=== PATIENT | female | born 1950 | race Caucasian/White ===

== ENCOUNTER → 2020-03-10 | Outpatient (REF) | payer MEDICARE, OTHER ==
[2020-03-10 11:15] LABS: BASO % 0.5 % (0.0-1.0); EOS # 0.1 10^3/uL (0.0-0.5); EOS % 1.6 % (0.0-3.0); HEMATOCRIT 37.3 % (36.0-47.0); HEMOGLOBIN 12.7 g/dl (12.0-15.5); LYMPH # 2.5 10^3/uL (1.5-5.0); LYMPH % 33.2 % (24.0-44.0); MEAN CORPUSCULAR HEMOGLOBIN 31.4 pg (27.0-33.0); MEAN CORPUSCULAR VOLUME 92.3 fl (80.0-96.0); MONO # 0.5 10^3/uL (0.0-0.8); NEUTROPHILS # 4.4 10^3/uL (1.5-8.5); NEUTROPHILS % 58.4 % (36.0-66.0); PLATELET COUNT, AUTOMATED 174 10^3/uL (150-450); RED BLOOD COUNT 4.04 10^6/uL (4.00-5.40); WHITE BLOOD COUNT 7.5 10^3/uL (4.0-10.0)
[2020-03-10 11:44] LABS: ALBUMIN 4.5 GM/DL (3.2-5.2); ALT/SGPT 42 U/L (12-78); BLOOD UREA NITROGEN 13 MG/DL (7-18); CALCIUM LEVEL 10.1 MG/DL (8.8-10.2); CARBON DIOXIDE LEVEL 27 MEQ/L (21-32); CHLORIDE LEVEL 102 MEQ/L (98-107); CHOLESTEROL LEVEL 160 MG/DL (<200); CHOLESTEROL RISK RATIO 2.909 (<5); CREATININE FOR GFR 0.83 MG/DL (0.55-1.30); FREE T4 1.06 NG/DL (0.76-1.46); GLOMERULAR FILTRATION RATE > 60.0 (>45); GLUCOSE, FASTING 137 MG/DL (70-100); HDL CHOLESTEROL 55 MG/DL (>40); LDL CHOLESTEROL 81 MG/DL (<100); NON-HDL-C 105 MG/DL; POTASSIUM SERUM 4.1 MEQ/L (3.5-5.1); PTH INTACT 18.4 PG/ML (18.5-88.0); SODIUM LEVEL 139 MEQ/L (136-145); TOTAL 25(OH) VITAMIN D 65.5 NG/ML (30.0-100.0); TOTAL PROTEIN 8.3 GM/DL (6.4-8.2); TRIGLYCERIDES LEVEL 121 MG/DL (<150)
[2020-03-10 11:46] LABS: HEMOGLOBIN A1c 5.5 %
== END ==
LOC: M SFHCPLAZ 10:03
PROVIDERS: ATTEND Physician Assistant Medical
DX: E55.9 Vitamin D deficiency, unspecified (principal); E03.9 Hypothyroidism, unspecified; I10 Essential (primary) hypertension; E78.5 Hyperlipidemia, unspecified; E11.9 Type 2 diabetes mellitus without complications; J45.20 Mild intermittent asthma, uncomplicated
CPT/HCPCS: 36415; 80053; 80061; 82306; 83036; 83970; 84439; 84443; 85025; G0463

== ENCOUNTER → 2020-03-10 | Outpatient (CLI) | payer MEDICARE, OTHER ==
--- NOTE | 2020-03-10 11:20 | REPPI ---
TWO-VIEW CHEST: REASON: History of asthma. PRIORS: None. FINDINGS: The superior mediastinal structures are midline. The cardiac silhouette is unremarkable in size, shape, and position. The diaphragmatic surfaces of the lungs are regular, and the costophrenic angles are clear. The pulmonary morat[place] are clear. The imaged osseous structures are intact. IMPRESSION: There is no acute cardiopulmonary disease. Electronically Signed by David Carlson DO 03/10/2020 02:46 P
== END ==
LOC: M PLAIMG 10:05
PROVIDERS: ATTEND Physician Assistant Medical
DX: J45.20 Mild intermittent asthma, uncomplicated (principal)

== ENCOUNTER → 2020-04-07 | Outpatient (REF) | payer MEDICARE, OTHER | LOC: M SFHCPLAZ 11:16 | PROVIDERS: ATTEND Physician Assistant Medical | DX: G62.9 Polyneuropathy, unspecified (principal) ==

== ENCOUNTER → 2020-07-18 | Outpatient (REF) | payer MEDICARE, OTHER ==
[2020-07-18 14:52] LABS: HEMOGLOBIN A1c 5.3 %
[2020-07-18 15:06] LABS: FREE T4 1.05 NG/DL (0.76-1.46); THYROID STIMULATING HORMONE 2.47 uIU/ML (0.358-3.740)
== END ==
LOC: M SFHCPLAZ 09:25
PROVIDERS: ATTEND Physician Assistant Medical
DX: E55.9 Vitamin D deficiency, unspecified (principal); E11.9 Type 2 diabetes mellitus without complications; E03.9 Hypothyroidism, unspecified

== ENCOUNTER → 2020-09-18 | Outpatient (REF) | payer MEDICARE, OTHER | LOC: M LAB REF 13:00 | PROVIDERS: ATTEND Plastic Surgery Surgery of the Hand | DX: D22.39 Melanocytic nevi of other parts of face (principal) ==

== ENCOUNTER → 2020-11-15 | Outpatient (CLI) | payer MEDICARE, OTHER | LOC: M WHC 15:26 | PROVIDERS: ATTEND Physician Assistant Medical | DX: Z12.31 Encounter for screening mammogram for malignant neoplasm of breast (principal) ==

== ENCOUNTER → 2020-11-16 | Outpatient (REF) | payer MEDICARE, OTHER ==
[2020-11-16 18:42] LABS: HEMOGLOBIN A1c 5.5 %
[2020-11-16 18:46] LABS: ALBUMIN 4.2 GM/DL (3.2-5.2); ALT/SGPT 45 U/L (12-78); BILIRUBIN,TOTAL 0.7 MG/DL (0.2-1.0); BLOOD UREA NITROGEN 14 MG/DL (7-18); CALCIUM LEVEL 9.3 MG/DL (8.8-10.2); CARBON DIOXIDE LEVEL 26 MEQ/L (21-32); CHLORIDE LEVEL 101 MEQ/L (98-107); CREATININE FOR GFR 0.82 MG/DL (0.55-1.30); FREE T4 1.27 NG/DL (0.76-1.46); GLOMERULAR FILTRATION RATE > 60.0 (>39); GLUCOSE, FASTING 164 MG/DL (70-100); POTASSIUM SERUM 3.6 MEQ/L (3.5-5.1); SODIUM LEVEL 137 MEQ/L (136-145); THYROID STIMULATING HORMONE 0.018 uIU/ML (0.358-3.740); TOTAL PROTEIN 8.1 GM/DL (6.4-8.2)
== END ==
LOC: M PLALAB 15:19
PROVIDERS: ATTEND Physician Assistant Medical
DX: E11.9 Type 2 diabetes mellitus without complications (principal); E03.9 Hypothyroidism, unspecified

== ENCOUNTER → 2021-01-12 | Outpatient (REF) | payer MEDICARE, OTHER ==
[2021-01-12 11:52] LABS: BASO % 0.7 % (0.0-1.0); EOS # 0.2 10^3/uL (0.0-0.5); EOS % 2.7 % (0.0-3.0); HEMATOCRIT 35.8 % (36.0-47.0); HEMOGLOBIN 12.2 g/dl (12.0-15.5); LYMPH # 2.3 10^3/uL (1.5-5.0); LYMPH % 38.2 % (24.0-44.0); MEAN CORPUSCULAR HEMOGLOBIN 31.4 pg (27.0-33.0); MEAN CORPUSCULAR HGB CONC 34.1 g/dl (32.0-36.5); MEAN CORPUSCULAR VOLUME 92.3 fl (80.0-96.0); MONO # 0.4 10^3/uL (0.0-0.8); MONO % 6.2 % (2.0-8.0); NEUTROPHILS # 3.1 10^3/uL (1.5-8.5); NEUTROPHILS % 51.9 % (36.0-66.0); PLATELET COUNT, AUTOMATED 150 10^3/uL (150-450); RED BLOOD COUNT 3.88 10^6/uL (4.00-5.40)
[2021-01-12 12:51] LABS: ALBUMIN 4.3 GM/DL (3.2-5.2); ALT/SGPT 34 U/L (12-78); BILIRUBIN,TOTAL 0.9 MG/DL (0.2-1.0); BLOOD UREA NITROGEN 18 MG/DL (7-18); CALCIUM LEVEL 10.2 MG/DL (8.8-10.2); CARBON DIOXIDE LEVEL 24 MEQ/L (21-32); CHLORIDE LEVEL 102 MEQ/L (98-107); CREATININE FOR GFR 0.81 MG/DL (0.55-1.30); FREE T4 0.94 NG/DL (0.76-1.46); GLOMERULAR FILTRATION RATE > 60.0 (>39); GLUCOSE, FASTING 115 MG/DL (70-100); POTASSIUM SERUM 4.2 MEQ/L (3.5-5.1); SODIUM LEVEL 136 MEQ/L (136-145); THYROID STIMULATING HORMONE 0.214 uIU/ML (0.358-3.740); TOTAL 25(OH) VITAMIN D 55.2 NG/ML (30.0-100.0); TOTAL PROTEIN 7.9 GM/DL (6.4-8.2)
== END ==
LOC: M PLALAB 09:59
PROVIDERS: ATTEND Physician Assistant Medical
DX: I10 Essential (primary) hypertension (principal); E03.9 Hypothyroidism, unspecified

== ENCOUNTER → 2021-03-20 | Outpatient (REF) | payer MEDICARE, OTHER | LOC: M SFHCPLAZ 09:38 | PROVIDERS: ATTEND Physician Assistant Medical | DX: Z71.84 Encounter for health counseling related to travel (principal) | CPT/HCPCS: 36415; 86769; G0463 ==

== ENCOUNTER → 2021-07-21 | Outpatient (CLI) | payer MEDICARE, OTHER ==
[~2021-07-21] MED LIST: AMLO1TAB24; ARMO1TAB; ATOR1TAB21; CLEN1SOL; ESCITALOPRAM; LEXA1TAB2; LOSA100T8; METF500T13; MONT10TA10; THYR15TA
== END ==
LOC: M LABSMTC 11:43
PROVIDERS: ATTEND Anesthesiology
DX: Z01.812 Encounter for preprocedural laboratory examination (principal); Z20.822 Contact with and (suspected) exposure to COVID-19

== ENCOUNTER 2021-07-26 07:02 | Day surgery (SDC) | payer MEDICARE, OTHER ==
[~2021-07-26] VITALS: Ht 154.9 cm; Wt 77.1 kg
[~2021-07-26 07:02] MED LIST changes: +NS 1,000 ML IV ONE
--- OUTSIDE RECORDS SUMMARY | 2021-07-26 07:05 | CCD ---
Author Author [facility] Organization [facility] Address Unknown Phone Unavailable Care Team Providers Care Boiler Coverer Helper Name Role Phone Giovanni Mitzi Unavailable PROBLEMS Type Condition ICD9-CM Code [id number] Code Onset Dates Condition S tatus W/U Status Risk SNOMED Code Notes Problem Acquired hypothyroidism E03.9 Active confirmed 731163540 Problem Hyperlipidemia LDL goal <100 E78.5 Active confirme d 88334071 Problem Essential hypertension I10 Active confirmed 83429212 Problem Anxiety F41.9 Active confirmed 77908933 Problem Vitamin D deficiency E55.9 Active confirmed 62093812 Problem Abdominal pannus 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 Active confirmed 106 7934260793 Problem Mild intermittent reactive airway disease without comp lication J45.20 Active confirmed 891021556 Problem Type 2 diabetes mellitus wit hout complication, without long-term current use of insulin E11.9 Active confirmed 318535988 Problem Peripheral polyneuropathy G62.9 Active confirmed 30295603 Problem Encounter for screening mammogram for malignant neoplasm of breast Z12.31 Active confirmed 418104031 ALLERGIES Allergen (clinical drug ingredient) Drug/Non Drug Allergy do cumented on EMR Reaction Allergy Type Onset Date Status Dog dander Dog dander Unknown Non Drug Allergy Active Seasonal Unknown Non Drug Allergy Active Penicillin (For Allergies Use Only) Unknown Drug Allerg y Active Cat dander Cat dander Unknown Non Drug Allergy Active ENCOUNTERS from 1950 to 2021-06-27 Encounter Location Date Provider Diagnosis [facility] [address] [facility] [phone] [place] [address] May, Mitzi Davila IMMUNIZATIONS No Information SOCIAL HISTORY Tobacco Use: Social History Observation Description Date Details (start date - stop date) Never Smoker Sex Assigned At : Social History Observation Description Sex Assigned At Unknown Education: Question Answer Notes Level of Education: Not Finished College Audit Question Answer Notes Total Score: 1 Interpretation: Alcohol Education Language: Question Answer Notes Languages spoken: Maori Oriental Orthodox: Question Answer Notes Oriental Orthodox 08 Islam Sexual Hx: Question Answer Notes Had sex in the last 12 months (vaginal, oral, or anal)? No Have you ever had an STD? No Drug and Alcohol Question Answer Notes Total Score: 0 Interpretation: No problems reported Alcohol Screening: Question Answer Notes Did you have a drink containing alcohol in the past year? No Points 0 Interpretation Negative Tobacco Use: Question Answer Notes Are you a: never smoker REASON FOR REFERRAL No Information VITAL SIGNS No information MEDICATIONS Medication SIG (Take, Route, Frequency, Duration) Notes Start Da te End Date Status [place] Thyroid 60 MG 1 tablet on an empty stomach Orally Once a day for 30 day(s) Dec, Not-Taking metFORMIN HCl 500 MG 2 tab Oral bid for 90 day(s) Active Atorvastatin Calcium 20 MG tk 1 t po qpm Oral before bedtime for 90 day(s) Active metFORMIN HCl 500 MG tk 1.5 t po bid Oral bid for 30 Active Amlodipine Besylate 5 MG tk 1 t po qd Oral Daily for 90 day(s) Active Vitamin D3 10 MCG (400 UNIT) 1 capsule Orally Once a day for 30 day(s ) Active [place] Thyroid 15 MG 1 tablet on an empty stomach Orally Once a day for 30 day(s) January, Active [place] Thyroid 30 MG 1.5 tablet on an empty stoma ch Orally Once a day for 90 day(s) Active Montelukast Sodium 10 MG 1 tablet Oral before bedtime for 90 days Active Systane Ultra 0.4-0.3 % 1 drop Ophthalmic c1Onisq for 7 day(s) Active Ventolin HFA 108 (90 Base) MCG/ACT 1 puff as needed Inhalation ever y 4 hrs Active Losartan Potassium-HCTZ 100-12.5 MG tk 1 t po qd Oral Daily for 90 da y(s) Active Escitalopram Oxalate 20 MG 1 tablet Orally Once a day for 90 day (s) Feb, Active PROCEDURES No Information RESULTS No Results REASON FOR VISIT montelukast MEDICAL (GENERAL) HISTORY Type Description Date Medical History DM Medical History HTN Medical History Hyperlipidemia Medical History Hypothyroidism Medical History Pneumonia in past Surgical History C-Sections x's 3 Surgical History Gall Bladder 1985 Hospitalization History Pneumonia & Q wave activity 10/2016 Goals Section No Information Health Concerns No Information MEDICAL EQUIPMENT No Information MENTAL STATUS No Information FUNCTIONAL STATUS No Information ASSESSMENTS No Information PLAN OF TREATMENT Medication Medication Name Sig Start Date Stop Date Amlodipine Besylate 5 MG tk 1 t po qd Oral Daily for 90 day(s) Losartan Potassium-HCTZ 100-12.5 MG tk 1 t po qd Oral Daily for 90 day(s) metFORMIN HCl 500 MG 2 tab Oral bid for 90 day(s) Atorvastatin Calcium 20 MG tk 1 t po qpm Oral before bedtime for 90 day(s) Montelukast Sodium 10 MG 1 tablet Oral before bedtime for 90 day s Ventolin HFA 108 (90 Base) MCG/ACT 1 puff as needed Inhalation e very 4 hrs Escitalopram Oxalate 20 MG 1 tablet Orally Once a day for 90 day(s) Feb, [place] Thyroid 30 MG 1.5 tablet on an empty stoma ch Orally Once a day for 90 day(s) Vitamin D3 10 MCG (400 UNIT) 1 capsule Orally Once a day for 30 day(s) Systane Ultra 0.4-0.3 % 1 drop Ophthalmic v2Mhtdm for 7 day(s) Next Appt Details Provider Name:Mitzi Shivam Davila, 2020-09 0 09:30:00 AM, [address] [facility], , [place], [address], Insurance Providers Payer Name Payer Address Payer Phone Insured Name Patient Relati onship to Insured Coverage Start Date Coverage End Date HU[employer] PPO [address] [address] [facility] [phone] ASHIA ARRIAGA MEDICARE Part A and B [address] [facility] [phone] ASHIA JENNINGS
--- OUTSIDE RECORDS SUMMARY | 2021-07-26 07:05 | CCD | Continuity of Care Document ---
Author Author [facility] Organization Unknown Address [address], [address] [place] [address] Phone [phone] Care Team Providers Care Child Care Lead Teacher Name Role Phone Mizti Davila AUTM Problems Active Problems Provider Date Essential hypertension Onset: 08/17/2020 Social History Type Date Description Comments Sex Female ETOH Use Rarely consumes alcohol Tobacco Use Start: Unknown Denies Smoking Smoking Status Reviewed: 09/11/20 Denies Smoking Allergies, Adverse Reactions, Alerts Active Allergies Criticality Reaction | Severity Comments Date Penicillins Unable to assess criticality 06/12/2021 Medications Active Medications SIG Qnty Indications Ordering Provide r Date Clenpiq 10-3.5-12mg-GM -GM/160ML S olution take as directed per doctor's bowel prep instructions. 320ml Z12.1 1 Laron Nolen MD 06/12/[address] take 4 tabs by mouth prior to procedure per instructions. 4tabs Z12.11 Laron Nolen MD 06/12/2021 Atorvastatin Calcium 20mg Tablets Daily Unknown Amlodipine Besylate 5mg Tablets Daily Unknown Metformin HCL 500mg Tablets 2 bid Unknown Montelukast Sodium 10mg Tablets 1 by mouth every day Unknown Zyrtec Allergy 10mg Capsules one pill by mouth at night.. Unknown [place] Thyroid 30mg Tablets Daily with a 15 mg to make 45 mg Unknown Escitalopram Oxalate 20mg Tablets 2 Daily Unknown Ventolin HFA 108(90Base) mcg/Act A erosol take 1 puff as needed. Unknown 0 Immunizations Description No Information Available Vital Signs Date Vital Result Comment 06/12/2021 2:05pm BP Systolic 148 mmHg BP Diastolic 82 mmHg Height 61 inches 5'1" Weight 175.00 lb BMI (Body Mass Index) 33.1 kg/m2 [place] Body Weight 105 lb Weight 79.380 kg BSA (Body Surface Area) 1.78 m2 10/04/2020 3:24pm BP Systolic 118 mmHg BP Diastolic 68 mmHg Heart Rate 80 /min Respiratory Rate 14 /min Body Temperature 97.8 F Height 61 inches 5'1" [place] Body Weight 105 lb Results Description No Information Available Procedures Description No Information Available Medical Devices Description No Information Available Encounters Description No Information Available Assessments Date Code Description Provider 06/12/2021 Z12.11 Encounter for screening for marva gnant neoplasm of colon SHADI Ramsey 06/12/2021 Z86.010 Personal history of colonic poly ps SHADI Ramsey Plan of Treatment Future Appointment(s):* 07/26/2021 8:40 am - Hayden Wang M.D. at [facility] 06/12/2021 - SHADI Ramsey* Z12.11 Encounter for screening for malignant neoplasm of colon * Z86.010 Personal history of colonic polyps * * New Medication:* Clenpiq 10-3.5-12 mg-GM -GM/160ML * Dulcolax 5 mg * New Orders:* Colonoscopy, Ordered: 06/12/21 * Comments:* Will arrange for colonoscopy. Reviewed risks and benefits of the procedure, as well as other options, with the patient. Bowel prep procedure was discussed with patient, as well as risks and side effects associated with the bowel prep. Patient verbalized understanding of all of the above and is in agreement to proceed. Patient will seek medical attention for any acute changes. Will monitor. * Follow up:* As scheduled, sooner if needed. Functional Status Description No Information Available Mental Status Description No Information Available Referrals Refer to Reason for Referral Status Appt Date Hayden Wang M.D. COLO SCREENING HX OF POLYPS Sched ed 05/08/2021 [facility] [address], [address] [place], [place] [address] [phone]
--- OUTSIDE RECORDS SUMMARY | 2021-07-26 07:05 | CCD ---
Author Author [facility] Organization [facility] Address Unknown Phone Unavailable Care Team Providers Care Teaching Aide Name Role Phone Giovanni Mitzi Unavailable PROBLEMS Type Condition ICD9-CM Code [id number] Code Onset Dates Condition S tatus W/U Status Risk SNOMED Code Notes Problem Acquired hypothyroidism E03.9 Active confirmed 568395797 Problem Hyperlipidemia LDL goal <100 E78.5 Active confirme d 83218496 Problem Essential hypertension I10 Active confirmed 15435009 Problem Anxiety F41.9 Active confirmed 44305973 Problem Vitamin D deficiency E55.9 Active confirmed 41193077 Problem Abdominal pannus E65 Active confirmed 106 8921086456 Problem Mild intermittent reactive airway disease without comp lication J45.20 Active confirmed 640510079 Problem Type 2 diabetes mellitus wit hout complication, without long-term current use of insulin E11.9 Active confirmed 414096090 Problem Peripheral polyneuropathy G62.9 Active confirmed 01302653 Problem Encounter for screening mammogram for malignant neoplasm of breast Z12.31 Active confirmed 050435305 ALLERGIES Allergen (clinical drug ingredient) Drug/Non Drug Allergy do cumented on EMR Reaction Allergy Type Onset Date Status Cat dander Cat Dander Unknown Drug Allergy Active Penicillin (For Allergies Use Only) Unknown Drug Allerg y Active Pollen Pollen Unknown Drug Allergy Active Dog dander Dog Dander Unknown Drug Allergy Active ENCOUNTERS from 1950 to 2021-07-24 Encounter Location Date Provider Diagnosis [address] [phone] [place] [address] Jun, Mitzi Davila Anxiety F41.9 IMMUNIZATIONS No Information SOCIAL HISTORY Tobacco Use: Social History Observation Description Date Details (start date - stop date) Never Smoker Sex Assigned At : Social History Observation Description Sex Assigned At Unknown Education: Question Answer Notes Level of Education: Not Finished College Audit Question Answer Notes Total Score: 1 Interpretation: Alcohol Education Language: Question Answer Notes Languages spoken: Slovak Anglican: Question Answer Notes Anglican 08 Advent Sexual Hx: Question Answer Notes Had sex [...] Notes Start Da te End Date Status [place] Thyroid 15 MG 1 tablet on an empty stomach Orally Once a day for 30 day(s) January, Active metFORMIN HCl 500 MG 2 tab Oral bid for 90 day(s) Active Atorvastatin Calcium 20 MG tk 1 t po qpm Oral before bedtime for 90 day(s) Active metFORMIN HCl 500 MG tk 1.5 t po bid Oral bid for 30 Active Amlodipine Besylate 5 MG tk 1 t po qd Oral Daily for 90 day(s) Active Ventolin HFA 108 (90 Base) MCG/ACT 1 puff as needed Inhalation ever y 4 hrs Active Vitamin D3 10 MCG (400 UNIT) 1 capsule Orally Once a day for 30 day(s ) Active [place] Thyroid 30 MG 1.5 tablet on an empty stoma ch Orally Once a day for 90 day(s) Active Montelukast Sodium 10 MG 1 tablet Oral before bedtime for 90 days Active [place] Thyroid 60 MG 1 tablet on an empty stomach Orally Once a day for 30 day(s) Dec, Not-Taking Escitalopram Oxalate 20 MG 1 tablet Orally Once a day for 90 day (s) Feb, Active Losartan Potassium-HCTZ 100-12.5 MG tk 1 t po qd Oral Daily for 90 da y(s) Active Systane Ultra 0.4-0.3 % 1 drop Ophthalmic y9Ofken for 7 day(s) Active PROCEDURES No Information RESULTS No Results REASON FOR VISIT escitalopram MEDICAL (GENERAL) HISTORY Type Description Date Medical History DM Medical History HTN Medical History Hyperlipidemia Medical History Hypothyroidism Medical History Pneumonia in past Surgical History C-Sections x's 3 Surgical History Gall Bladder 1985 Hospitalization History Pneumonia & Q wave activity 10/2016 Goals Section No Information Health Concerns No Information MEDICAL EQUIPMENT No Information MENTAL STATUS No Information FUNCTIONAL STATUS No Information ASSESSMENTS Encounter Date Diagnosis Assessment Notes Treatment Notes Treatm ent Clinical Notes Jun, Anxiety (ICD-10 - F41.9) PLAN OF TREATMENT Medication Medication Name Sig [...] Oral before bedtime for 90 day s Escitalopram Oxalate 20 MG 1 tablet Orally Once a day for 90 day(s) Feb, Systane Ultra 0.4-0.3 % 1 drop Ophthalmic y6Rqven for 7 day(s) [place] Thyroid 30 MG 1.5 tablet on an empty stoma ch Orally Once a day for 90 day(s) Ventolin HFA 108 (90 Base) MCG/ACT 1 puff as needed Inhalation e very 4 hrs Vitamin D3 10 MCG (400 UNIT) 1 capsule Orally Once a day for 30 day(s) Next Appt Details Provider Name:Mitzi Langley Giovanni, 2020-09 02:30:00 PM, [address] [facility] [facility], , [place], [address], Insurance Providers Payer Name Payer Address Payer Phone Insured Name Patient Relati onship to Insured Coverage Start Date Coverage End Date HU[employer]NA PPO [address] [address] [facility] [phone] ASHIA ARRIAGA self MEDICARE Part A and B [address] [facility] [phone] ASHIA JENNINGS self
--- OUTSIDE RECORDS SUMMARY | 2021-07-26 07:05 | CCD | Continuity of Care Document ---
Author Author Christina [facility] Organization Unknown Address [address], [address] [place] [address] Phone [phone] Care Team Providers Care Associate Program Manager Name Role Phone Mitzi Davila AUTM Problems Active Problems Provider Date [...] one pill by mouth at night.. Unknown [place] Thyroid 30mg Tablets Daily with a 15 [...] lb BMI (Body Mass Index) 33.1 kg/m2 [place] Body Weight 105 lb Weight 79.380 kg BSA (Body Surface Area) 1.78 m2 10/04/2020 3:24pm BP Systolic 118 mmHg BP Diastolic 68 mmHg Heart Rate 80 /min Respiratory Rate 14 /min Body Temperature 97.8 F Height 61 inches 5'1" [place] Body Weight 105 lb Results Description No Information Available Procedures Description No Information Available Medical Devices Description No Information Available Encounters Description No Information Available Assessments Date Code Description Provider 06/12/2021 Z12.11 Encounter for screening for marva gnant neoplasm of colon SHADI Ramsey 06/12/2021 Z86.010 Personal history of colonic poly ps SHADI Ramsey Plan of Treatment 06/12/2021 - SHADI Ramsey* Z12.11 Encounter for [...] SCREENING HX OF POLYPS Sched ed 05/08/2021 [facility] [address], [address] [place], [place] [address] [phone]
--- OUTSIDE RECORDS SUMMARY | 2021-07-26 07:06 | CCD | Continuity of Care Document ---
Author Author Christina [facility] Organization Unknown Address [address], [address] [place] [address] Phone [phone] Care Team Providers Care Maintenance Welder Name Role Phone Mitzi Davila AUTM Problems [...] one pill by mouth at night.. Unknown [place] Thyroid 30mg Tablets Daily with a 15 [...] lb BMI (Body Mass Index) 33.1 kg/m2 [place] Body Weight 105 lb Weight 79.380 kg BSA (Body Surface Area) 1.78 m2 10/04/2020 3:24pm BP Systolic 118 mmHg BP Diastolic 68 mmHg Heart Rate 80 /min Respiratory Rate 14 /min Body Temperature 97.8 F Height 61 inches 5'1" [place] Body Weight 105 lb Results Description No [...] SCREENING HX OF POLYPS Sched ed 05/08/2021 [facility] [address], [address] [place], [place] [address] [phone]
--- OUTSIDE RECORDS SUMMARY | 2021-07-26 07:06 | CCD ---
Author Author [facility] Organization [facility] Address Unknown Phone Unavailable Care Team Providers [employer] Name Role Phone Ceja, D Lissy CLOTH COLORS EXAMINER-C Unavailable Unavailable Ceja, D Lissy CLOTH COLORS EXAMINER-C Unavailable Unavailable Ceja, D Lissy CLOTH COLORS EXAMINER-C Unavailable Unavailable Ceja, D Lissy CLOTH COLORS EXAMINER-C Unavailable Unavailable Ceja, D Lissy CLOTH COLORS EXAMINER-C Unavailable Unavailable Ceja, D Lissy CLOTH COLORS EXAMINER-C Unavailable Unavailable Ceja, D Lissy CLOTH COLORS EXAMINER-C Unavailable Unavailable PAMELA, E LUCAS DO Unavailable Unavailable PAMELA, E LUCAS DO Unavailable Unavailable PAMELA, E LUCAS DO Unavailable Unavailable PAMELA, E LUCAS DO Unavailable Unavailable PAMELA, E LUCAS DO Unavailable Unavailable PAMELA, E LUCAS DO Unavailable Unavailable PAMELA, E LUCAS DO Unavailable Unavailable PAMELA, E LUCAS DO Unavailable Unavailable PAMELA, E LUCAS DO Unavailable Unavailable PAMELA, E LUCAS DO Unavailable Unavailable PAMELA, E LUCAS DO Unavailable Unavailable PAMELA, E LUCAS DO Unavailable Unavailable PAMELA, E LUCAS DO Unavailable Unavailable PAMELA, E LUCAS DO Unavailable Unavailable PAMELA, E LUCAS DO Unavailable Unavailable PAMELA, E LUCAS DO Unavailable Unavailable PAMELA, E LUCAS DO Unavailable Unavailable PAMELA, E LUCAS DO Unavailable Unavailable PAMELA, E LUCAS DO Unavailable Unavailable PAMELA, E LUCAS DO Unavailable Unavailable PAMELA, E LUCAS DO Unavailable Unavailable PAMELA, E LUCAS DO Unavailable Unavailable Lockerbie, S Tamie CLOTH COLORS EXAMINER-C Unavailable Unavailable Lockerbie, S Tamie CLOTH COLORS EXAMINER-C Unavailable Unavailable Lockerbie, S Tamie CLOTH COLORS EXAMINER-C Unavailable Unavailable Lockerbie, S Tamie CLOTH COLORS EXAMINER-C Unavailable Unavailable Lockerbie, S Tamie CLOTH COLORS EXAMINER-C Unavailable Unavailable Lockerbie, S Tamie CLOTH COLORS EXAMINER-C Unavailable Unavailable Lockerbie, S Tamie CLOTH COLORS EXAMINER-C Unavailable Unavailable Lockerbie, S Tamie CLOTH COLORS EXAMINER-C Unavailable Unavailable Lockerbie, S Tamie CLOTH COLORS EXAMINER-C Unavailable Unavailable Lockerbie, S Tamie CLOTH COLORS EXAMINER-C Unavailable Unavailable Lockerbie, S Tamie CLOTH COLORS EXAMINER-C Unavailable Unavailable L[place]bie, S Tamie CLOTH COLORS EXAMINER-C Unavailable Unavailable Lockerbie, S Tamie CLOTH COLORS EXAMINER-C Unavailable Unavailable [place]bie, S Tamie CLOTH COLORS EXAMINER-C Unavailable Unavailable [place]bie, S Tamie CLOTH COLORS EXAMINER-C Unavailable Unavailable [place]bie, S Tamie CLOTH COLORS EXAMINER-C Unavailable Unavailable [place]bie, S Tamie CLOTH COLORS EXAMINER-C Unavailable Unavailable [place]bie, S Tamie CLOTH COLORS EXAMINER-C Unavailable Unavailable L[place]bie, S Tamie CLOTH COLORS EXAMINER-C Unavailable Unavailable [place]bie, S Tamie CLOTH COLORS EXAMINER-C Unavailable Unavailable [place], S Tamie CLOTH COLORS EXAMINER-C Unavailable Unavailable L[place]bie, S Tamie CLOTH COLORS EXAMINER-C Unavailable Unavailable L[place]bie, S Tamie CLOTH COLORS EXAMINER-C Unavailable Unavailable [place], S Tamie CLOTH COLORS EXAMINER-C Unavailable Unavailable Re-disclosure Warning The records that you are about to access may contain information from federally-assisted alcohol or drug abuse programs. If such information is present, then the following federally mandated warning applies: This information has been disclosed to you from records protected by federal confidentiality rules (42 CFR part 2). The federal rules prohibit you from making any further disclosure of this information unless further disclosure is expressly permitted by the written consent of the person to whom it pertains or as otherwise permitted by 42 CFR part 2. A general authorization for the release of medical or other information is NOT sufficient for this purpose. The Federal rules restrict any use of the information to criminally investigate or prosecute any alcohol or drug abuse patient.The records that you are about to access may contain highly sensitive health information, the redisclosure of which is protected by Article 27-F of the [place] Public Health law. If you continue you may have access to information: Regarding HIV / AIDS; Provided by facilities licensed or operated by the [facility] of Mental Health; or Provided by the [facility] Office for People With Developmental Disabilities. If such information is present, then the following [facility] mandated warning applies: This information has been disclosed to you from confidential records which are protected by state law. State law prohibits you from making any further disclosure of this information without the specific written consent of the person to whom it pertains, or as otherwise permitted by law. Any unauthorized further disclosure in violation of state law may result in a fine or fdc sentence or both. A general authorization for the release of medical or other information is NOT sufficient authorization for further disc losure. Encounters Encounter Providers Location Date Indications Data Source(s ) Unknown [address] [place] [address] 07/23/2021 12:00:00 AM EDT eCW1 ([facility]) Unknown [address] [facility] [id number] 06/27/2021 12:00:00 AM EDT eCW1 ([facility]) Outpatient Attender: Lissy TATUMP-C Main Office 05/01/2021 11:45:00 AM EDT MEDENT ([facility]) Unknown [address] [facility] [id number] 03/30/2021 12:00:00 AM EDT eCW1 ([facility]) Office Visit, Est Pt., Level 4 PC [address] [place] [address] 03/20/2021 12:00:00 AM EDT eCW1 [facility] Outpatient Attender: Lissy Ceja CLOTH COLORS EXAMINER-C Main Office 03/15/2021 11:45:00 AM EDT MEDENT ([facility]) Unknown [address] [facility] [id number] 02/14/2021 12:00:00 AM EDT eCW1 ([facility]) Outpatient Attender: Tamie Bunch CLOTH COLORS EXAMINER-C Main Office 02/13/2021 01:15:00 PM EDT [facility] ([facility]) Office Visit, Est Pt., Level 4 PC [address] [place] [address] 01/15/2021 12:00:00 AM EDT eCW1 ([facility]) Unknown [address] [facility] [address] 01/01/2021 12:00:00 AM EDT eCW1 ([facility]) Outpatient Attender: Tamie TATUMP-C Main Office 12/21/2020 09:15:00 AM EDT [facility] ([facility]) TeleMedicine Phone E/M by [place] 5-10 Min [address] [place] [address] 12/06/2020 12:00:00 AM EST eCW1 ([facility]) Outpatient Attender: Tamie TATUMP-C Main Office 11/23/2020 12:00:00 PM EST [facility] ([facility]) Outpatient [address] [facility] [address] 11/17/2020 12:00:00 AM EST eCW1 ([facility]) Unknown [address] [facility] [address] 11/17/2020 12:00:00 AM EST eCW1 ([facility]) Outpatient Attender: LUCAS Vera/[place]/Anup/Reind l 09/11/2020 10:30:00 AM EST [facility]ENT ([facility]) Office Visit, Est Pt., Level 3 PC [address] [place] [address] 09/06/2020 12:00:00 AM EST eCW1 ([facility]) Outpatient Attender: LUCAS Vera/[place]/Anup/Reind l 08/11/2020 12:30:00 PM EST [facility] ([facility]) Unknown [address] [facility] [address] 08/11/2020 12:00:00 AM EST eCW1 ([facility]) Office Visit, Est Pt., Level [address] [place] [address] 07/18/2020 12:00:00 AM EDT eCW1 ([facility]) Medications Medication Brand Name Start Date Product Form Dose Route Admi nistrative Instructions Pharmacy Instructions Status Indications Reaction Description Data Source(s) Bisacodyl 5 MG Delayed Release Oral Tablet [Dulcolax] Dulcol ax 06/12/2021 12:00:00 AM EDT ORAL active M EDENT ([facility], ) Clenpiq Clenpiq 06/12/2021 12:00:00 AM EDT active MEDENT ([facility], ) Escitalopram 20 MG Oral Tablet Escitalopram Oxalate 20 MG Escitalopram Oxalate 20 MG 03/20/2021 12:00:00 AM EDT 1.0 {tablet} activ e Escitalopram Oxalate 20 MG [facility] Escitalopram 20 MG Oral Tablet Escitalopram Oxalate 20 MG Escitalopram Oxalate 20 MG 03/20/2021 12:00:00 AM EDT 1.0 {tablet} activ e Escitalopram Oxalate 20 MG [facility]CW1 [facility]) Escitalopram 20 MG Oral Tablet Escitalopram Oxalate 20 MG Escitalopram Oxalate 20 MG 03/20/2021 12:00:00 AM EDT 1.0 {tablet} activ e Escitalopram Oxalate 20 MG eCW1 [facility]) Escitalopram 20 MG Oral Tablet Escitalopram Oxalate 20 MG Escitalopram Oxalate 20 MG 03/20/2021 12:00:00 AM EDT 1.0 {tablet} activ e Escitalopram Oxalate 20 MG eCW1 ([facility]) Eucrisa Eucrisa 03/15/2021 12:00:00 AM EDT active MEDENT ([facility]) thyroid (SHELTER) 15 MG Oral Tablet [[place] Thyroid] Armou r Thyroid 15 MG [place] Thyroid 15 MG 02/14/2021 12:00:00 AM EDT 1.0 {tablet_on_an_empty_stom ach} active [place] Thyroid 15 MG eCW1 ([facility]) thyroid (SHELTER) 15 MG Oral Tablet [[place] Thyroid] Armou r Thyroid 15 MG [place] Thyroid 15 MG 02/14/2021 12:00:00 AM EDT 1.0 {tablet_on_an_empty_stom ach} active [place] Thyroid 15 MG eCW1 ([facility]) thyroid (SHELTER) 15 MG Oral Tablet [[place] Thyroid] Armou r Thyroid 15 MG [place] Thyroid 15 MG 02/14/2021 12:00:00 AM EDT 1.0 {tablet_on_an_empty_stom ach} active [place] Thyroid 15 MG eCW1 ([facility]) thyroid (SHELTER) 15 MG Oral Tablet [[place] Thyroid] Armou r Thyroid 15 MG [place] Thyroid 15 MG 02/14/2021 12:00:00 AM EDT 1.0 {tablet_on_an_empty_stom ach} active [place] Thyroid 15 MG eCW1 ([facility]) thyroid (SHELTER) 15 MG Oral Tablet [[place] Thyroid] Armou r Thyroid 15 MG [place] Thyroid 15 MG 02/14/2021 12:00:00 AM EDT 1.0 {tablet_on_an_empty_stom ach} active [place] Thyroid 15 MG eCW1 ([facility]) Triamcinolone Acetonide 1 MG/ML Topical Cream Triamcinolone Acetonide 02/13/2021 12:00:00 AM EDT active M JENNIFER ([facility]) thyroid (SHELTER) 30 MG Oral Tablet [[place] Thyroid] Armou r Thyroid 30 MG [place] Thyroid 30 MG 01/15/2021 12:00:00 AM EDT 1.5 {tablet_on_an_empty_stom ach} active [place] Thyroid 30 MG eCW1 ([facility]) thyroid (SHELTER) 30 MG Oral Tablet [[place] Thyroid] Armou r Thyroid 30 MG [place] Thyroid 30 MG 01/15/2021 12:00:00 AM EDT acti ve [place] Thyroid 30 MG eCW1 [facility] thyroid (SHELTER) 60 MG Oral Tablet [[place] Thyroid] Armou r Thyroid 60 MG [place] Thyroid 60 MG 01/01/2021 12:00:00 AM EDT 1.0 {tablet_on_an_empty_stom ach} active [place] Thyroid 60 MG eCW1 ([facility]) thyroid (SHELTER) 60 MG Oral Tablet [[place] Thyroid] Armou r Thyroid 60 MG [place] Thyroid 60 MG 01/01/2021 12:00:00 AM EDT 1.0 {tablet_on_an_empty_stom ach} active [place] Thyroid 60 MG eCW1 ([facility]) thyroid (SHELTER) 60 MG Oral Tablet [[place] Thyroid] Armou r Thyroid 60 MG [place] Thyroid 60 MG 01/01/2021 12:00:00 AM EDT 1.0 {tablet_on_an_empty_stom ach} suspended [place] Thyroid 60 MG eCW1 ([facility]) thyroid (SHELTER) 60 MG Oral Tablet [[place] Thyroid] Armou r Thyroid 60 MG [place] Thyroid 60 MG 01/01/2021 12:00:00 AM EDT 1.0 {tablet_on_an_empty_stom ach} active [place] Thyroid 60 MG eCW1 ([facility]) thyroid (SHELTER) 60 MG Oral Tablet [[place] Thyroid] Armou r Thyroid 60 MG [place] Thyroid 60 MG 01/01/2021 12:00:00 AM EDT 1.0 {tablet_on_an_empty_stom ach} active [place] Thyroid 60 MG eCW1 ([facility]) thyroid (SHELTER) 60 MG Oral Tablet [[place] Thyroid] Armou r Thyroid 60 MG [place] Thyroid 60 MG 01/01/2021 12:00:00 AM EDT 1.0 {tablet_on_an_empty_stom ach} suspended [place] Thyroid 60 MG eCW1 ([facility]) thyroid (SHELTER) 60 MG Oral Tablet [[place] Thyroid] Armou r Thyroid 60 MG [place] Thyroid 60 MG 01/01/2021 12:00:00 AM EDT 1.0 {tablet_on_an_empty_stom ach} suspended [place] Thyroid 60 MG eCW1 ([facility]) thyroid (SHELTER) 60 MG Oral Tablet [[place] Thyroid] Armou r Thyroid 60 MG [place] Thyroid 60 MG 01/01/2021 12:00:00 AM EDT 1.0 {tablet_on_an_empty_stom ach} suspended [place] Thyroid 60 MG eCW1 ([facility]) Nystatin 100 UNT/MG Topical Powder Nystatin 12/21/2020 12:00:00 AM EDT active [facility] ([facility]) tazarotene 1 MG/ML Topical Cream [Tazorac] Tazorac 12/21/2020 12:00:00 AM EDT completed [facility] ([facility]) thyroid (SHELTER) 60 MG Oral Tablet [[place] Thyroid] Armou r Thyroid 60 MG [place] Thyroid 60 MG 11/17/2020 12:00:00 AM EST 1.0 {tablet_on_an_empty_stom ach} active [place] Thyroid 60 MG eCW1 ([facility]) Polyethylene Glycol 400 4 MG/ML / Propyl leo glycol 3 MG/ML Ophthalmic Solution [Systane] Systane Ultra 0.4-0.3 % Systane Ultra 0.4-0.3 % 11/17/2020 12:00:00 AM EST 1.0 {drop} active Systane Ultra 0.4-0.3 % [facility] Polyethylene Glycol 400 4 MG/ML / Propyl leo glycol 3 MG/ML Ophthalmic Solution [Systane] Systane Ultra 0.4-0.3 % Systane Ultra 0.4-0.3 % 11/17/2020 12:00:00 AM EST 1.0 {drop} active Systane Ultra 0.4-0.3 % eCW1 [facility] thyroid (SHELTER) 60 MG Oral Tablet [[place] Thyroid] Armou r Thyroid 60 MG [place] Thyroid 60 MG 11/17/2020 12:00:00 AM EST 1.0 {tablet_on_an_empty_stom ach} active [place] Thyroid 60 MG eCW1 ([facility]) Escitalopram 10 MG Oral Tablet Escitalopram Oxalate 10 MG Escitalopram Oxalate 10 MG 11/17/2020 12:00:00 AM EST 1.0 {tablet} activ e Escitalopram Oxalate 10 MG [facility]CW1 [facility]) Escitalopram 10 MG Oral Tablet Escitalopram Oxalate 10 MG Escitalopram Oxalate 10 MG 11/17/2020 12:00:00 AM EST 1.0 {tablet} activ e Escitalopram Oxalate 10 MG eCW1 [facility]) Levothyroxine Sodium 0.112 MG Oral Tablet Levothyroxin e Sodium 112 MCG Levothyroxine Sodium 112 MCG 09/06/2020 12:00:00 AM EST active Levothyroxine Sodium 112 MCG eCW1 ([facility]) Levothyroxine Sodium 0.1 MG Oral Tablet Levothyroxine Sodium 100 MCG Levothyroxine Sodium 100 MCG 07/18/2020 12:00:00 AM EDT active Levothyroxine Sodium 100 MCG eCW1 ([facility]) Levothyroxine Sodium 0.1 MG Oral Tablet Levothyroxine Sodium 100 MCG Levothyroxine Sodium 100 MCG 07/18/2020 12:00:00 AM EDT active Levothyroxine Sodium 100 MCG eCW1 [facility]) Insurance Providers Payer name Policy type / Coverage type Policy ID Covered democrat ID Covered democrat's relationship to pearl Policy Pearl Plan Information HUMANA PPO [id number] SP [id number] MEDICARE [id number] SP [id number] HUMANA PPO [id number] SP [id number] HU[employer]NA GOLD [id number] SP [id number] [employer]NA PPO [id number] SP [id number] MEDICARE [id number] SP [id number] T Problems, Conditions, and Diagnoses Code Display Name Description Problem Type Effective Dates Data Source(s) F41.9 [id number] Anxiety Problem 11/17/2020 12:00:00 AM ES T [facility]CW1 [facility]) E65 [id number] Abdominal pannus Problem 09/06/2020 12:00 :00 AM EST eCW1 ([facility]) [id number] Essential hypertension Essential hypertension Problem 08/17/2020 12:00:00 AM EST MEDENT ([facility] ) Z12.31 [id number] Encounter for screen ing mammogram for malignant neoplasm of breast Problem 07/18/2020 12:00:00 AM EDT eCW1 ([facility]) Surgeries/Procedures Procedure Description Date Indications Data Source(s) DESTRUCTION BENIGN LESIONS UP TO 14 05/01/2021 12:00:0 0 AM EDT MEDENT ([facility]) OFFICE OUTPATIENT VISIT 25 MINUTES 05/01/2021 12:00:00 AM EDT MEDENT ([facility]) DESTRUCTION BENIGN LESIONS UP TO 14 03/15/2021 12:00:0 0 AM EDT MEDENT ([facility]) OFFICE OUTPATIENT VISIT 25 MINUTES 03/15/2021 12:00:00 AM EDT MEDENT ([facility]) DESTRUCTION BENIGN LESIONS UP TO 14 02/13/2021 12:00:0 0 AM EDT MEDENT ([facility]) OFFICE OUTPATIENT VISIT 25 MINUTES 02/13/2021 12:00:00 AM EDT MEDENT ([facility]) DESTRUCTION BENIGN LESIONS UP TO 14 12/21/2020 12:00:0 0 AM EDT MEDENT ([facility]) OFFICE OUTPATIENT VISIT 25 MINUTES 12/21/2020 12:00:00 AM EDT MEDENT ([facility]) DESTRUCTION PREMALIGNANT LESION 1ST 11/23/2020 12:00:0 0 AM EST MEDENT ([facility]) DESTRUCTION PREMALIGNANT LESION 2-14 EA 11/23/2020 12: 00:00 AM EST MEDENT ([facility]) OFFICE OUTPATIENT NEW 45 MINUTES 11/23/2020 12:00:00 A M EST MEDENT ([facility]) Incisional Biopsy Of Skin 09/18/2020 12:00:00 AM EST MEDENT ([facility], ) Results ID Date Data Source [id number] 07/21/2021 11:45:00 AM EDT [facility] Name Value Range Interpretation Code Description Data Kinaz rce(s) Supporting Document(s) SARS-CoV-2 (COVID-19) RNA [Presence] in Respiratory specimen by VONDA with probe detection Not Detected [facility] This lab was ordered by [facility] and reported by [employer] ID Date Data Source COVID-19 (SARS-CoV-2) IgG Antibody Test 03/20/2021 12:00:00 AM EDT [facility]CW[facility] Name Value Range Interpretation Code Description Data Kinza rce(s) Supporting Document(s) Negative Negative [employer] SARS-CoV-2 Ab IG g eCW1 ([facility]) ID Date Data Source [id number] 02/13/2021 01:52:00 PM EDT MEDENT ([facility]) Name Value Range Interpretation Code Description Data Kinza rce(s) Supporting Document(s) Laboratory test finding (navigational concept) Laboratory test result MEDENT ([facility]) ID Date Data Source [id number] 02/13/2021 01:52:00 PM EDT MEDENT ([facility]) Name Value Range Interpretation Code Description Data Kinza rce(s) Supporting Document(s) Fungus identified in Unspecified specimen by Culture Laboratory adali t result MEDENT ([facility]) Source of Specimen: L 2nd toe Fungus identified in Unspecified specimen by Culture Laboratory adali t result MEDENT ([facility]) Source of Specimen: L 2nd toe No yeast or fungus isolated after 3 weeks. ID Date Data Source [id number] 09/18/2020 04:03:00 PM EST MEDENT ([facility], ) Name Value Range Interpretation Code Description Data Kinza rce(s) Supporting Document(s) Surgical pathology study Laboratory test result [facility]) ID Date Data Source PTH INTACT 07/19/2020 07:04:42 AM EDT eCW1 ([facility]) Name Value Range Interpretation Code Description Data Kinza rce(s) Supporting Document(s) 19.0 eCW1 ([facility]) ID Date Data Source VITAMIN [id number] 07/19/2020 07:01:10 AM EDT eCW1 ([facility]) Name Value Range Interpretation Code Description Data Kinza rce(s) Supporting Document(s) 47.0 eCW1 ([facility]) ID Date Data Source FREE T4 & TSH PANEL 07/19/2020 07:00:55 AM EDT eCW1 ([facility]) Name Value Range Interpretation Code Description Data Kinza rce(s) Supporting Document(s) 2.470 eCW1 ([facility]) 1.05 eCW1 ([facility]) ID Date Data Source [id number] 07/19/2020 07:00:37 AM EDT eCW1 ([facility]) Name Value Range Interpretation Code Description Data Kinza rce(s) Supporting Document(s) Hemoglobin A1c/Hemoglobin.total in Blood 5.3 eCW1 ([facility]) Procedure Social History Code Duration Value Status Description Data Source(s ) Smoking 07/16/2021 12:00:00 AM EDT Never Smoker completed Never S moker eCW1 ([facility]) Smoking 03/20/2021 12:00:00 AM EDT Never Smoker completed Never S moker eCW1 ([facility]) Smoking 03/20/2021 12:00:00 AM EDT Never Smoker completed Never S moker eCW1 ([facility]) Smoking 03/20/2021 12:00:00 AM EDT Never Smoker completed Never S moker eCW1 ([facility]) Smoking 01/15/2021 12:00:00 AM EDT Never Smoker completed Never S moker eCW1 ([facility]) Smoking 01/15/2021 12:00:00 AM EDT Never Smoker completed Never S moker eCW1 ([facility]) Smoking 11/17/2020 12:00:00 AM EST Never Smoker completed Never S moker eCW1 ([facility]) Smoking 11/17/2020 12:00:00 AM EST Never Smoker completed Never S moker eCW1 ([facility]) Smoking 11/17/2020 12:00:00 AM EST Never Smoker completed Never S moker eCW1 ([facility]) Smoking 11/17/2020 12:00:00 AM EST Never Smoker completed Never S moker eCW1 ([facility]) Smoking 09/06/2020 12:00:00 AM EST Never Smoker completed Never S moker eCW1 ([facility]) Smoking 07/18/2020 12:00:00 AM EDT Never Smoker completed Never S moker eCW1 ([facility]) Smoking 07/18/2020 12:00:00 AM EDT Never Smoker completed Never S moker eCW1 ([facility]) Vital Signs ID Date Data Source UNK Name Value Range Interpretation Code Description Data Source(s) Body weight 79.380 kg 79.380 kg MEDRUBÉN ([facility], ) Body surface area Derived from formula 1.78 m2 1.78 m2 MEDRUBÉN ([facility]) Diastolic blood pressure 82 mm[Hg] 82 mm[Hg] [facility] ([facility]) Systolic blood pressure 148 mm[Hg] 148 mm[Hg] M EDENT ([facility]) Body weight 175.00 [lb_av] 175.00 [lb_av] MEDEN T ([facility]) Body mass index (BMI) [Ratio] 33.1 kg/m2 33.1 k g/m2 [facility] ([facility]) Body height 61 [in_i] 61 [in_i] [facility] ([facility]) 5'1" [place] body weight 105 [lb_av] 105 [lb_av] MEDEN T ([facility]) Systolic blood pressure 120 mm[Hg] 120 mm[Hg] M EDENT ([facility]) Diastolic blood pressure 70 mm[Hg] 70 mm[Hg] MEDENT ([facility]) Body weight 168.00 [lb_av] 168.00 [lb_av] MEDEN T ([facility]) Body height 61 [in_i] 61 [in_i] MEDENT ([facility]) 5'1" Body mass index (BMI) [Ratio] 31.7 kg/m2 31.7 k g/m2 [facility] ([facility]) Body weight 172.4 [lb_av] 172.4 [lb_av] eCW1 ([facility]) Body weight 78.2 kg 78.2 kg eCW1 ([facility] Body height 61.25 [in_i] 61.25 [in_i] eCW1 ([facility]) Body mass index (BMI) [Ratio] 32.31 kg/m2 32.31 kg/m2 eCW1 [facility]) Heart rate 112 /min 112 /min eCW1 ([facility]) Body temperature 97.7 [degF] 97.7 [degF] [facility]CW1 [facility] Systolic blood pressure 112 mm[Hg] 112 mm[Hg] e CW1 ([facility]) Diastolic blood pressure 66 mm[Hg] 66 mm[Hg] eCW1 ([facility]) Systolic blood pressure 128 mm[Hg] 128 mm[Hg] M EDENT ([facility]) Diastolic blood pressure 60 mm[Hg] 60 mm[Hg] MEDENT ([facility]) Body weight 168.00 [lb_av] 168.00 [lb_av] MEDEN T ([facility]) Body mass index (BMI) [Ratio] 31.86 kg/m2 31.86 kg/m2 eCW1 [facility]) Body height 61.25 [in_i] 61.25 [in_i] eCW1 ([facility]) Systolic blood pressure 160 mm[Hg] 160 mm[Hg] e [facility] Heart rate 124 /min 124 /min eCW1 ([facility]) Respiratory rate 18 /min 18 /min eCW1 ([facility] Body temperature 96.7 [degF] 96.7 [degF] eCW1 ( [facility]) Diastolic blood pressure 40 mm[Hg] 40 mm[Hg] eCW1 [facility]) Body weight 170 [lb_av] 170 [lb_av] eCW1 ([facility]) Body weight 169 [lb_av] 169 [lb_av] eCW1 ([facility]) Body height 61.25 [in_i] 61.25 [in_i] eCW1 ([facility]) Body mass index (BMI) [Ratio] 31.67 kg/m2 31.67 kg/m2 eCW1 ([facility]) Heart rate 120 /min 120 /min eCW1 ([facility]) Respiratory rate 18 /min 18 /min eCW1 ([facility] Body temperature 97.2 [degF] 97.2 [degF] eCW1 ( [facility]) Systolic blood pressure 124 mm[Hg] 124 mm[Hg] e CW1 ([facility]) Diastolic blood pressure 72 mm[Hg] 72 mm[Hg] eCW1 ([facility]) Respiratory rate 14 /min 14 /min MEDENT ( [facility]) Body temperature 97.8 [degF] 97.8 [degF] MEDENT ([facility], ) Body height 61 [in_i] 61 [in_i] MEDENT ([facility]) 5'1" [place] body weight 105 [lb_av] 105 [lb_av] MEDEN T ([facility]) Systolic blood pressure 118 mm[Hg] 118 mm[Hg] M EDENT ([facility]) Diastolic blood pressure 68 mm[Hg] 68 mm[Hg] MEDENT ([facility]) Heart rate 80 /min 80 /min MEDENT ([facility]) Respiratory rate 14 /min 14 /min MEDENT ( [facility]) Body temperature 97.8 [degF] 97.8 [degF] MEDENT ([facility]) Body height 61 [in_i] 61 [in_i] MEDENT ([facility]) 5'1" [place] body weight 105 [lb_av] 105 [lb_av] MEDEN T ([facility]) Body temperature 97.8 [degF] 97.8 [degF] MEDENT ([facility]) Systolic blood pressure 144 mm[Hg] 144 mm[Hg] M EDENT ([facility]) Diastolic blood pressure 68 mm[Hg] 68 mm[Hg] MEDENT ([facility]) Heart rate 108 /min 108 /min MEDENT ([facility]) Respiratory rate 20 /min 20 /min MEDENT ( [facility]) Body temperature 98.1 [degF] 98.1 [degF] MEDENT ([facility]) Body height 61 [in_i] 61 [in_i] MEDENT ([facility]) 5'1" Body weight 168.00 [lb_av] 168.00 [lb_av] MEDEN T ([facility]) Body mass index (BMI) [Ratio] 31.7 kg/m2 31.7 k g/m2 MEDENT ([facility]) [place] body weight 105 [lb_av] 105 [lb_av] MEDEN T ([facility]) Body weight 76.205 kg 76.205 kg MEDENT ([facility]) Body surface area Derived from formula 1.75 m2 1.75 m2 [facility] ([facility]) Body weight 170.4 [lb_av] 170.4 [lb_av] eCW1 ([facility]) Body height 61.25 [in_i] 61.25 [in_i] eCW1 ([facility]) Body mass index (BMI) [Ratio] 31.93 kg/m2 31.93 kg/m2 eCW1 ([facility]) Heart rate 123 /min 123 /min eCW1 ([facility]) Respiratory rate 18 /min 18 /min eCW1 [facility] Body temperature 97.3 [degF] 97.3 [degF] eCW1 ( [facility]) Systolic blood pressure 128 mm[Hg] 128 mm[Hg] e CW1 ([facility]) Diastolic blood pressure 78 mm[Hg] 78 mm[Hg] eCW1 ([facility]) Systolic blood pressure 150 mm[Hg] 150 mm[Hg] M EDENT ([facility]) Diastolic blood pressure 90 mm[Hg] 90 mm[Hg] MEDENT ([facility]) Heart rate 68 /min 68 /min [facility] ([facility]) Respiratory rate 14 /min 14 /min [facility] ( [facility]) Body temperature 96.6 [degF] 96.6 [degF] MEDENT ([facility]) Body height 61 [in_i] 61 [in_i] [facility] ([facility]) 5'1" Body weight 170.00 [lb_av] 170.00 [lb_av] MEDEN T ([facility]) Body mass index (BMI) [Ratio] 32.1 kg/m2 32.1 k g/m2 [facility] ([facility]) [place] body weight 105 [lb_av] 105 [lb_av] MEDEN T ([facility]) Body weight 77.112 kg 77.112 kg [facility] ([facility], ) Body surface area Derived from formula 1.76 m2 1.76 m2 [facility] ([facility], ) Body temperature 96.9 [degF] 96.9 [degF] eCW1 ( [facility] Body weight 170.4 [lb_av] 170.4 [lb_av] eCW1 ([facility]) Body height 61.25 [in_i] 61.25 [in_i] eCW1 ([facility]) Body mass index (BMI) [Ratio] 31.93 kg/m2 31.93 kg/m2 eCW1 ([facility]) Heart rate 118 /min 118 /min eCW1 ([facility]) Respiratory rate 18 /min 18 /min eCW1 [facility] Systolic blood pressure 134 mm[Hg] 134 mm[Hg] e CW1 ([facility]) Diastolic blood pressure 70 mm[Hg] 70 mm[Hg] eCW1 ([facility] Patient Treatment Plan of Care Planned Activity Planned Date Details Description Data Source (s) Escitalopram 20 MG Oral Tablet 03/20/2021 12:00:00 AM EDT eCW1 ([facility]) Escitalopram 20 MG Oral Tablet 03/20/2021 12:00:00 AM EDT eCW1 ([facility]) Escitalopram 20 MG Oral Tablet 03/20/2021 12:00:00 AM EDT eCW1 ([facility]) Escitalopram 20 MG Oral Tablet 03/20/2021 12:00:00 AM EDT eCW1 ([facility]) thyroid (SHELTER) 15 MG Oral Tablet [[place] Thyroid] 02/14/2021 12:00:0 0 AM EDT eCW1 ([facility]) thyroid (SHELTER) 30 MG Oral Tablet [[place] Thyroid] 01/15/2021 12:00:0 0 AM EDT eCW1 ([facility]) thyroid (SHELTER) 30 MG Oral Tablet [[place] Thyroid] 01/15/2021 12:00:0 0 AM EDT eCW1 ([facility]) thyroid (SHELTER) 60 MG Oral Tablet [[place] Thyroid] 01/01/2021 12:00:0 0 AM EDT eCW1 ([facility]) thyroid (SHELTER) 60 MG Oral Tablet [[place] Thyroid] 01/01/2021 12:00:0 0 AM EDT eCW1 ([facility]) Polyethylene Glycol 400 4 MG/ML / Propyl leo glycol 3 MG/ML Ophthalmic Solution [Systane] 11/17/2020 12:00:00 AM EST eCW1 ([facility]) Escitalopram 10 MG Oral Tablet 11/17/2020 12:00:00 AM EST eCW1 ([facility]) thyroid (SHELTER) 60 MG Oral Tablet [[place] Thyroid] 11/17/2020 12:00:0 0 AM EST eCW1 ([facility]) Polyethylene Glycol 400 4 MG/ML / Propyl leo glycol 3 MG/ML Ophthalmic Solution [Systane] 11/17/2020 12:00:00 AM EST eCW1 ([facility]) Escitalopram 10 MG Oral Tablet 11/17/2020 12:00:00 AM EST eCW1 ([facility]) thyroid (SHELTER) 60 MG Oral Tablet [[place] Thyroid] 11/17/2020 12:00:0 0 AM EST eCW1 ([facility]) Levothyroxine Sodium 0.112 MG Oral Tablet 09/06/2020 12:00:00 AM ES T eCW1 ([facility]) Levothyroxine Sodium 0.1 MG Oral Tablet 07/18/2020 12:00:00 AM EDT eCW1 ([facility]) Levothyroxine Sodium 0.1 MG Oral Tablet 07/18/2020 12:00:00 AM EDT eCW1 ([facility])
--- OUTSIDE RECORDS SUMMARY | 2021-07-26 07:06 | CCD | Continuity of Care Document ---
Author Author Christina [facility] Organization Unknown Address [address], [address] [place] [address] Phone [phone] Care Team Providers Care Final Inspector Paper Name Role Phone Mitzi Davila AUTM [phone] Problems Active Problems Provider Date Essential hypertension [...] one pill by mouth at night.. Unknown [place] Thyroid 30mg Tablets Daily with a 15 [...] lb BMI (Body Mass Index) 33.1 kg/m2 [place] Body Weight 105 lb Weight 79.380 kg BSA (Body Surface Area) 1.78 m2 10/04/2020 3:24pm BP Systolic 118 mmHg BP Diastolic 68 mmHg Heart Rate 80 /min Respiratory Rate 14 /min Body Temperature 97.8 F Height 61 inches 5'1" [place] Body Weight 105 lb Results Description No [...] SCREENING HX OF POLYPS Sched ed 05/08/2021 [facility] [address], [address] [place], [place] [address] [phone]
--- OUTSIDE RECORDS SUMMARY | 2021-07-26 07:06 | CCD | Continuity of Care Document ---
Author Author Christina GENAO [facility] Organization Unknown Address [address], [address] [place] [address] Phone [phone] Care Team Providers Care Utility Spray Operator Name Role Phone Mitzi Davila AUTM Problems [...] one pill by mouth at night.. Unknown [place] Thyroid 30mg Tablets Daily with a 15 [...] lb BMI (Body Mass Index) 33.1 kg/m2 [place] Body Weight 105 lb Weight 79.380 kg BSA (Body Surface Area) 1.78 m2 10/04/2020 3:24pm BP Systolic 118 mmHg BP Diastolic 68 mmHg Heart Rate 80 /min Respiratory Rate 14 /min Body Temperature 97.8 F Height 61 inches 5'1" [place] Body Weight 105 lb Results Description No [...] SCREENING HX OF POLYPS Sched ed 05/08/2021 [facility] [address], [address] [place], [place] [address] [phone]
--- OUTSIDE RECORDS SUMMARY | 2021-07-26 07:06 | CCD ---
Author Author [facility] Organization [facility] Address Unknown Phone Unavailable Care Team Providers Care Survey Instrument Operator Name Role Phone Giovanni Mitzi Unavailable PROBLEMS Type Condition ICD9-CM Code [id number] Code Onset Dates Condition S tatus W/U Status Risk SNOMED Code Notes Problem Acquired hypothyroidism E03.9 Active confirmed 278828855 Problem Hyperlipidemia LDL goal <100 E78.5 Active confirme d 52165998 Problem Essential hypertension I10 Active confirmed 46140577 Problem Anxiety F41.9 Active confirmed 27529395 Problem Vitamin D deficiency E55.9 Active confirmed 59955955 Problem Abdominal pannus E65 Active confirmed 106 9192789504 Problem Mild intermittent reactive airway disease without comp lication J45.20 Active confirmed 551196559 Problem Type 2 diabetes mellitus wit hout complication, without long-term current use of insulin E11.9 Active confirmed 443576535 Problem Peripheral polyneuropathy G62.9 Active confirmed 42539596 Problem Encounter for screening mammogram for malignant neoplasm of breast Z12.31 Active confirmed 593017364 ALLERGIES Allergen (clinical drug ingredient) Drug/Non Drug Allergy do cumented on EMR Reaction Allergy Type Onset Date Status Dog dander Dog dander Unknown Non Drug Allergy Active Seasonal Unknown Non Drug Allergy Active Penicillin (For Allergies Use Only) Unknown Drug Allerg y Active Cat dander Cat dander Unknown Non Drug Allergy Active ENCOUNTERS from 1950 to 2021-05-10 Encounter Location Date Provider Diagnosis [facility] [phone] [place] [address] Mar, Mitzi Davila IMMUNIZATIONS No Information SOCIAL HISTORY Tobacco Use: Social History Observation Description Date Details (start date - stop date) Never Smoker Sex Assigned At : Social History Observation Description Sex Assigned At Unknown Education: Question Answer Notes Level of Education: Not Finished College Audit Question Answer Notes Total Score: 1 Interpretation: Alcohol Education Language: Question Answer Notes Languages spoken: Amharic Gnosticism: Question Answer Notes Gnosticism 08 Zoroastrianism Sexual Hx: Question Answer Notes Had sex [...] Notes Start Da te End Date Status [place] Thyroid 60 MG 1 tablet on an [...] qd Oral Daily for 90 day(s) Active [place] Thyroid 15 MG 1 tablet on an empty stomach Orally Once a day for 30 day(s) January, Active Montelukast Sodium 10 MG 1 tablet Oral before bedtime for 90 Active [place] Thyroid 30 MG 1.5 tablet on an empty stoma ch Orally Once a day for 90 day(s) Active Ventolin HFA 108 (90 Base) MCG/ACT 1 puff as needed Inhalation ever y 4 hrs Active Systane Ultra 0.4-0.3 % 1 drop Ophthalmic t9Didnt for 7 day(s) Active Vitamin D3 10 MCG (400 UNIT) 1 capsule Orally Once a day for 30 day(s ) Active Losartan Potassium-HCTZ 100-12.5 MG tk 1 t po qd Oral Daily for 90 da y(s) Active Escitalopram Oxalate 20 MG 1 tablet Orally Once a day for 90 day (s) Feb, Active PROCEDURES No Information RESULTS No Results REASON FOR VISIT prior colonoscopy request MEDICAL (GENERAL) HISTORY Type Description Date Medical [...] qpm Oral before bedtime for 90 day(s) Ventolin HFA 108 (90 Base) MCG/ACT 1 puff as needed Inhalation e very 4 hrs Escitalopram Oxalate 20 MG 1 tablet Orally Once a day for 90 day(s) Feb, [place] Thyroid 30 MG 1.5 tablet on an empty stoma ch Orally Once a day for 90 day(s) Vitamin D3 10 MCG (400 UNIT) 1 capsule Orally Once a day for 30 day(s) Systane Ultra 0.4-0.3 % 1 drop Ophthalmic q2Chxca for 7 day(s) Next Appt Details Provider Name:Mitzi Shivam Davila, 2020-09 0- 09:30:00 AM, [address], , [place], [address], Insurance Providers Payer Name Payer Address Payer Phone Insured Name Patient Relati onship to Insured Coverage Start Date Coverage End Date [employer] PPO [address] [address] [facility] [address] ASHIA ARRIAGA self MEDICARE Part A and B [address] [facility] [phone] ASHIA JENNINGS self
--- OUTSIDE RECORDS SUMMARY | 2021-07-26 07:06 | CCD | Continuity of Care Document ---
Author Author Christina GENAO [facility] Organization Unknown Address [address], [address] [place] [address] Phone [phone] Care Team Providers Care Organ Pipe Voicer Name Role Phone Mitzi Davila AUTM Problems [...] one pill by mouth at night.. Unknown [place] Thyroid 30mg Tablets Daily with a 15 [...] lb BMI (Body Mass Index) 33.1 kg/m2 [place] Body Weight 105 lb Weight 79.380 kg BSA (Body Surface Area) 1.78 m2 10/04/2020 3:24pm BP Systolic 118 mmHg BP Diastolic 68 mmHg Heart Rate 80 /min Respiratory Rate 14 /min Body Temperature 97.8 F Height 61 inches 5'1" [place] Body Weight 105 lb Results Description No [...] SCREENING HX OF POLYPS Sched ed 05/08/2021 [facility] [address], [address] [place], [place] [address] [phone]
--- OUTSIDE RECORDS SUMMARY | 2021-07-26 07:06 | CCD | Continuity of Care Document ---
Author Author [facility] Organization Unknown Address [address], [address] [place] [address] Phone [phone] Care Team Providers Care Msw Name Role Phone Mitzi Davila AUTM [phone] Problems Description No Information Available Social History Type Date Description Comments Sex Unknown Tobacco Use Start: Unknown Never Smoked Cigarettes ETOH Use Rarely consumes alcohol Sun Exposure moderate amount of sun exposure Sun Exposure Has never used tanning bed Sun Exposure Has experienced blistering from sunburns Sun Exposure Uses > 30 SPF Allergies, Adverse Reactions, Alerts Active Allergies Reaction Severity Comments Date Penicillin V 11/23/2020 Medications Active Medications SIG Qnty Indications Ordering Provide r Date Eucrisa 2% Ointment apply to bilateral hand twice daily until clear and then as needed 60gm L20.83 AICHA Medellin 03/15/2021 Triamcinolone Acetonide 0.1% Cream apply to hands sparingly twice a day x 2 weeks then as needed for flares. 30gm L20.83 AICHA Snell 02/13/2021 Nystatin [id number]/GM Powder apply to breast folds twice daily until clear 30gm B37.2 AICHA Snell 12/21/2020 [place] Thyroid Unknown Metformin HCL Unknown Atorvastatin Calcium Unknown Amlodipine Besylate Unknown Losartan Potassium Unknown Montelukast Sodium Unknown Zyrtec Allergy Unknown History Medications Tazorac 0.1% Cream apply to right cheek and nose sparingly twice a week 30gm L57.0 Tamie Bergman Braxton ELIZABETH ya-Frances 12/21/2020 - 01/24/2021 Immunizations Description No Information Available Vital Signs Date Vital Result Comment 05/01/2021 11:41am BP Systolic 120 mmHg BP Diastolic 70 mmHg Weight 168.00 lb Height 61 inches 5'1" BMI (Body Mass Index) 31.7 kg/m2 03/15/2021 11:38am BP Systolic 128 mmHg BP Diastolic 60 mmHg Weight 168.00 lb Results Test Acquired Date Facility Test Result H/L Range Note Fungus (Mycology) Culture 02/13/2021 [facility] Fungus (Mycology) Culture Final report 1 Result 1 See Comment: 2 Laboratory test finding 02/13/2021 [facility] PDF [id number] SEE IMAGE 1 Source of Specimen: L 2nd to e 2 Source of Specimen: L 2nd to e No yeast or fungus isolated after 3 weeks. Procedures Date Code Description Status 05/01/2021 46055 Office/Outpatient Established Mo d MDM 30-39 Min Completed 05/01/2021 97041 Destruction Benign L esions Other Than Skin Tags Or Cutan Vascular Completed 03/15/2021 57846 Office/Outpatient Established Mo d MDM 30-39 Min Completed 03/15/2021 58338 Destruction Benign L esions Other Than Skin Tags Or Cutan Vascular Completed 02/13/2021 48401 Office/Outpatient Established Mo d MDM 30-39 Min Completed 02/13/2021 28592 Destruction Benign L esions Other Than Skin Tags Or Cutan Vascular Completed 12/21/2020 04721 Office/Outpatient Established Mo d MDM 30-39 Min Completed 12/21/2020 16544 Destruction Benign L esions Other Than Skin Tags Or Cutan Vascular Completed 11/23/2020 21416 Office/Outpatient New Moderate M DM 45-59 Minutes Completed 11/23/2020 02646 Destruction Of Lesions 2-14 Comp leted 11/23/2020 72529 Destruction Of Lesion First Comp leted Medical Devices Description No Information Available Encounters Type Date Location Provider Dx Diagnosis Office Visit 05/01/2021 11:45a Main Office AICHA Medellin L 20.89 Other atopic dermatitis L82.1 Other seborrheic keratosis R20.8 Other disturbances of skin s ensation Office Visit 03/15/2021 11:45a Main Office ELIZABETH Medellin-C L 82.1 Other seborrheic keratosis L20.83 Infantile (acute) (chronic) eczema R20.8 Other disturbances of skin s ensation Office Visit 02/13/2021 1:15p Main Office Tamie LouisSriram Bunch MFT- C L82.1 Other seborrheic keratosis L20.83 Infantile (acute) (chronic) eczema B35.1 Tinea unguium R20.8 Other disturbances of skin s ensation Office Visit 12/21/2020 9:15a Main Office Tamie LouisSriram Bunch MFT- C L57.0 Actinic keratosis D22.5 Melanocytic nevi of trunk L82.1 Other seborrheic keratosis R20.8 Other disturbances of skin s ensation B37.2 Candidiasis of skin and nail Z12.83 Encounter for screening for malignant neoplasm of skin Office Visit 11/23/2020 1:00p Main Office Tamie HeribertoDEEPTI BrownP- C L57.0 Actinic keratosis L98.8 Oth disrd of the skin and rey bcutaneous tissue R20.8 Other disturbances of skin s ensation Assessments Date Code Description Provider 05/01/2021 L20.89 Other atopic dermatitis ELIZABETH Medellin-C 05/01/2021 L82.1 Other seborrheic keratosis DEEPTI BhattiP-C 05/01/2021 R20.8 Other disturbances of skin sensa tion DEEPTI MedellinP-C 03/15/2021 L82.1 Other seborrheic keratosis Elizabets a DEEPTI AugustinP-C 03/15/2021 L20.83 Infantile (acute) (chronic) ecze ma DEEPTI MedellinP-C 03/15/2021 R20.8 Other disturbances of skin sensa tion DEEPTI MedellinP-C 02/13/2021 L82.1 Other seborrheic keratosis Tejal Bunch MFT-C 02/13/2021 L20.83 Hand eczema Tamie SSriram ya MFT-C 02/13/2021 B35.1 Tinea unguium Tamie S. Braxton rbie, MFT-C 02/13/2021 R20.8 Other disturbances of skin sensa tion Tamie S. Lockerbie, MFT-C 12/21/2020 L57.0 Actinic keratosis Tamie S. Loc kerbie, MFT-C 12/21/2020 D22.5 Melanocytic nevi of trunk Chelse a S. Lockerbie, MFT-C 12/21/2020 L82.1 Other seborrheic keratosis Tejal ea S. Pushpaerbie, MFT-C 12/21/2020 R20.8 Other disturbances of skin sensa tion Tamie S. Lockerbie, MFT-C 12/21/2020 B37.2 Candidiasis of skin and nail Iveth lsea S. Pushpaerbie, [facility] 12/21/2020 Z12.83 Encounter for screening for marva gnant neoplasm of skin Tamie S. Lockerbie, [facility] 11/23/2020 L57.0 Actinic keratosis Tamie S. 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 L ockerbie, MFT-C 11/23/2020 R20.8 Other disturbances of skin sensa tion Tamie S. Lockerbie, [facility]FT-[facility] Plan of Treatment Future Appointment(s):* 12/24/2021 9:30 am - AICHA Medellin at Main Office 05/01/2021 - AICHA Medellin* L20.89 Other atopic dermatitis* Comments: * Improving. Continue Eucrisa 2% to bilateral hands BIDContinue Triamcinolone Acetonide 0.1% cream to bilateral palms BID as needed for flares. Instructed no more than 3 times weekly and only if necessary. Knows topical steroid safety.Knows not to over use.Re - discussed to use Eucrisa first and then Triamcinolone if needed. Call with problems. * L82.1 Other seborrheic keratosis* Comments:* LN2 today to 2 SK's located on L cheek and 1 SK located on R brow due to irritationWound care instructions given.Discussed that the areas treated will get red, bubble up/blister, maybe get a little weepy, form a scab then heal. Call with any problems. * R20.8 Other disturbances of skin sensation* Comments:* See above. * Follow up:* Has appt. Functional Status Description No Information Available Mental Status Description No Information Available Referrals Description No Information Available
[2021-07-26] MEDS ORDERED: LIDOCAINE 2% 100MG/5ML SDV (FOR ANES.) As Ordered ONE (07:07)
[2021-07-26] MEDS ORDERED: propofoL 200 MG/20 ML VIAL As Ordered ONE (07:07)
[2021-07-26] MEDS ORDERED: ZYRTTAB8 PO (07:23)
--- NOTE | 2021-07-26 08:52 | ROOR ---
Patient Name: Christina Macedo Procedure Date: 07/26/2021 8:19 AM Date of : 1950 Age: 71 Room: [facility] Gender: Female Note Status: Finalized Procedure: Colonoscopy Indications: High risk colon cancer surveillance: Personal history of colonic polyps Providers: Hayden Wang MD Referring MD: Mitzi BEE Requesting Provider: Medicines: Monitored Anesthesia Care Complications: No immediate complications. Procedure: Pre-Anesthesia Assessment: - Prior to the procedure, a History and Physical was performed, and patient medications and allergies were reviewed. The patient is competent. The risks and benefits of the procedure and the sedation options and risks were discussed with the patient. All questions were answered and informed consent was obtained. Patient identification and proposed procedure were verified by the physician, the nurse and the anesthesiologist in the procedure room. Mental Status Examination: alert and oriented. Airway Examination: normal oropharyngeal airway and neck mobility. Respiratory Examination: clear to auscultation. CV Examination: normal. Prophylactic Antibiotics: The patient does not require prophylactic antibiotics. Prior Anticoagulants: The patient has taken no previous anticoagulant or antiplatelet agents. ASA Grade Assessment: III - A patient with severe systemic disease. After reviewing the risks and benefits, the patient was deemed in satisfactory condition to undergo the procedure. The anesthesia plan was to use monitored anesthesia care (MAC). Immediately prior to administration of medications, the patient was re-assessed for adequacy to receive sedatives. The heart rate, respiratory rate, oxygen saturations, blood pressure, adequacy of pulmonary ventilation, and response to care were monitored throughout the procedure. The physical status of the patient was re-assessed after the procedure. The Colonoscope was introduced through the anus and advanced to the cecum, identified by appendiceal orifice and ileocecal valve. The colonoscopy was performed without difficulty. The patient tolerated the procedure well. The quality of the bowel preparation was good. The terminal ileum, ileocecal valve, appendiceal orifice, and rectum were photographed. Scope insertion time was 2 minutes. Scope withdrawal time was 10 minutes. The total duration of the procedure was 12 minutes. Findings: The perianal and digital rectal examinations were normal. A 6 mm polyp was found in the descending colon. The polyp was sessile. The polyp was removed with a cold snare. Resection and retrieval were complete. Verification of patient identification for the specimen was done by the physician and nurse using the patient's name, date and medical record number. Estimated blood loss was minimal. Multiple small-mouthed diverticula were found in the sigmoid colon. There was no evidence of diverticular bleeding. Non-bleeding external and internal hemorrhoids were found during retroflexion. The hemorrhoids were medium-sized. Impression: - One 6 mm polyp in the descending colon, removed with a cold snare. Resected and retrieved. - Moderate diverticulosis in the sigmoid colon. There was no evidence of diverticular bleeding. - Non-bleeding external and internal hemorrhoids. Recommendation: - Patient has a contact number available for emergencies. The signs and symptoms of potential delayed complications were discussed with the patient. Return to normal activities tomorrow. Written discharge instructions were provided to the patient. - High fiber diet. - Continue present medications. - Await pathology results. - Repeat colonoscopy in 5 years for surveillance based on pathology results and due to personal history of colon polyps in past Colonoscopy. - Telephone GI clinic for pathology results in 2 weeks. - Return to primary care physician. Procedure Code(s): --- Professional --- 28643, Colonoscopy, flexible; with removal of tumor(s), polyp(s), or other lesion(s) by snare technique Diagnosis Code(s): --- Professional --- Z86.010, Personal history of colonic polyps K63.5, Polyp of colon K64.8, Other hemorrhoids K57.30, Diverticulosis of large intestine without perforation or abscess without bleeding CPT copyright 2019 [employer]. All rights reserved. The codes documented in this report are preliminary and upon associate partner review may be revised to meet current compliance requirements. Hayden Wang MD Hayden Wang MD 07/26/2021 8:52:39 AM Electronically signed by Hayden Wang MD Number of Addenda: 0 Note Initiated On: 07/26/2021 8:19 AM Estimated Blood Loss: Estimated blood loss was minimal.
[2021-07-26 09:10] VITALS: BP 130/64
== END 2021-07-26 09:22 | disposition home or self-care (01) ==
LOC: M OPP 07:02
PROVIDERS: ATTEND Internal Medicine Gastroenterology
DX: Z12.11 Encounter for screening for malignant neoplasm of colon (principal); Z86.010 Personal history of colon polyps; K63.5 Polyp of colon; K57.30 Diverticulosis of large intestine without perforation or abscess without bleeding; K64.8 Other hemorrhoids; Z79.84 Long term (current) use of oral hypoglycemic drugs; Z79.899 Other long term (current) drug therapy; Z88.0 Allergy status to penicillin

== ENCOUNTER → 2022-01-29 | Outpatient (CLI) | payer MEDICARE, OTHER ==
[~2022-01-29] MED LIST changes: -MONT10TA10; +MONT10TA97; -NS 1,000 ML IV ONE; +ZYRTTAB8 PO
== END ==
LOC: M CARPUL 13:03
PROVIDERS: ATTEND Nurse Practitioner Family
DX: R06.00 Dyspnea, unspecified (principal)

== ENCOUNTER → 2022-02-01 | Outpatient (CLI) | payer MEDICARE, OTHER | LOC: M RAD 10:37 | PROVIDERS: ATTEND Internal Medicine Pulmonary Disease | DX: R06.00 Dyspnea, unspecified (principal); R91.8 Other nonspecific abnormal finding of lung field; J47.9 Bronchiectasis, uncomplicated; J84.10 Pulmonary fibrosis, unspecified ==

== ENCOUNTER 2022-03-22 16:47 | Emergency (ER) | payer MEDICARE, OTHER ==
[~2022-03-22] VITALS: Ht 152.4 cm; Wt 79.2 kg
[~2022-03-22 16:47] MED LIST changes: -FLUT1INH2
[2022-03-22] MEDS ORDERED: FLUT1INH2 (17:03)
[2022-03-22] MEDS ORDERED: NS 1,000 ML IV SCH (22:25)
[2022-03-22 22:46] LABS: BASO # 0.1 10^3/uL (0.0-0.2); BASO % 0.6 % (0.0-1.0); EOS # 0.1 10^3/uL (0.0-0.5); EOS % 1.8 % (0.0-3.0); HEMATOCRIT 33.5 % (36.0-47.0); HEMOGLOBIN 11.8 g/dl (12.0-15.5); LYMPH # 3.4 10^3/uL (1.5-5.0); MEAN CORPUSCULAR HEMOGLOBIN 31.9 pg (27.0-33.0); MEAN CORPUSCULAR HGB CONC 35.2 g/dl (32.0-36.5); MEAN CORPUSCULAR VOLUME 90.5 fl (80.0-96.0); MONO # 0.5 10^3/uL (0.0-0.8); MONO % 6.5 % (2.0-8.0); NEUTROPHILS # 3.8 10^3/uL (1.5-8.5); NEUTROPHILS % 47.8 % (36.0-66.0); PLATELET COUNT, AUTOMATED 166 10^3/uL (150-450); WHITE BLOOD COUNT 7.9 10^3/uL (4.0-10.0)
[2022-03-22 23:12] LABS: CREATININE FOR GFR 1.36 MG/DL (0.55-1.30); GLOMERULAR FILTRATION RATE 40.8 (>39); POTASSIUM SERUM 3.4 MEQ/L (3.5-5.1)
[2022-03-22] MEDS ORDERED: POTASSIUM CHLORIDE 10MEQ SR TABLET PO ONE (23:15)
[2022-03-23 00:01] VITALS: BP 130/58
== END 2022-03-23 00:36 | disposition home or self-care (01) ==
LOC: M ED 16:47
DX: R94.4 Abnormal results of kidney function studies (principal); E11.9 Type 2 diabetes mellitus without complications; I10 Essential (primary) hypertension; Z79.84 Long term (current) use of oral hypoglycemic drugs; Z79.899 Other long term (current) drug therapy; Z88.0 Allergy status to penicillin

== ENCOUNTER → 2022-03-22 | Outpatient (REF) | payer MEDICARE, OTHER ==
[~2022-03-22] MED LIST changes: +FLUT1INH2
[2022-03-22 13:53] LABS: BASO % 0.6 % (0.0-1.0); EOS # 0.1 10^3/uL (0.0-0.5); EOS % 1.7 % (0.0-3.0); HEMATOCRIT 33.8 % (36.0-47.0); HEMOGLOBIN 11.8 g/dl (12.0-15.5); LYMPH % 27.4 % (24.0-44.0); MEAN CORPUSCULAR HGB CONC 34.9 g/dl (32.0-36.5); MEAN CORPUSCULAR VOLUME 91.6 fl (80.0-96.0); MONO # 0.4 10^3/uL (0.0-0.8); NEUTROPHILS # 4.6 10^3/uL (1.5-8.5); PLATELET COUNT, AUTOMATED 185 10^3/uL (150-450); RED BLOOD COUNT 3.69 10^6/uL (4.00-5.40); WHITE BLOOD COUNT 7.2 10^3/uL (4.0-10.0)
[2022-03-22 14:02] LABS: ALBUMIN 4.3 GM/DL (3.2-5.2); CALCIUM LEVEL 9.3 MG/DL (8.8-10.2); CHOLESTEROL RISK RATIO 2.673 (<5); CREATININE FOR GFR 1.54 MG/DL (0.55-1.30); GLOMERULAR FILTRATION RATE 35.4 (>39); POTASSIUM SERUM 3.7 MEQ/L (3.5-5.1); TOTAL PROTEIN 8.3 GM/DL (6.4-8.2)
[2022-03-22 14:17] LABS: PTH INTACT 34.3 PG/ML (18.5-88.0); TOTAL 25(OH) VITAMIN D 40.1 NG/ML (30.0-100.0)
== END ==
LOC: M SFHCPLAZ 12:43
PROVIDERS: ATTEND Physician Assistant Medical
DX: E55.9 Vitamin D deficiency, unspecified (principal); E11.9 Type 2 diabetes mellitus without complications; I10 Essential (primary) hypertension; E78.5 Hyperlipidemia, unspecified; Z79.899 Other long term (current) drug therapy

== ENCOUNTER → 2022-03-22 | Outpatient (CLI) | payer MEDICARE, OTHER ==
[2022-03-22 14:11] LABS: FREE T4 1.23 NG/DL (0.76-1.46); TOTAL PROTEIN 8.3 GM/DL (6.4-8.2)
[2022-03-22 14:15] LABS: VITAMIN B12 LEVEL 640 PG/ML
[2022-03-22 14:16] LABS: FOLATE 9.6 NG/ML
[2022-03-22 14:20] LABS: HEMOGLOBIN A1c 5.4 %
[2022-03-27 10:00] LABS: ALBUMIN % 57.6 % (55.8-66.1); ALPHA-1-GLOBULIN % 3.2 % (2.9-4.9)
[2022-03-27 10:01] LABS: ALBUMIN 4.78 GM/DL (3.29-5.55); ALPHA-1-GLOBULINS 0.27 GM/DL (0.17-0.41); ALPHA-2-GLOBULINS 0.95 GM/DL (0.42-0.99); ALPHA-2-GLOBULINS % 11.5 % (7.1-11.8); BETA-1-GLOBULINS 0.54 GM/DL (0.28-0.60); BETA-1-GLOBULINS % 6.5 % (4.7-7.2); BETA-2-GLOBULINS 0.56 GM/DL (0.19-0.55); BETA-2-GLOBULINS % 6.7 % (3.2-6.5); GAMMA GLOBULIN % 14.5 % (11.1-18.8)
== END ==
LOC: M PLALAB 10:08
PROVIDERS: ATTEND Psychiatry & Neurology Neurology
DX: E53.8 Deficiency of other specified B group vitamins (principal); E07.9 Disorder of thyroid, unspecified; E11.40 Type 2 diabetes mellitus with diabetic neuropathy, unspecified

== ENCOUNTER → 2022-08-13 | Outpatient (CLI) | payer MEDICARE, OTHER ==
[~2022-08-13] MED LIST changes: +FLUT1INH2
== END ==
LOC: M PLAIMG 11:01
PROVIDERS: ATTEND Nurse Practitioner Family
DX: R91.8 Other nonspecific abnormal finding of lung field (principal); J47.9 Bronchiectasis, uncomplicated

== ENCOUNTER → 2022-08-19 | Outpatient (CLI) | payer MEDICARE, OTHER ==
[2022-08-19 13:26] LABS: INR 1.06
[2022-08-19 13:27] LABS: PARTIAL THROMBOPLASTIN TIME 27.3 SECONDS (24.8-34.2)
[2022-08-19 14:25] LABS: ALBUMIN 4.8 G/DL (3.2-5.2); ALT/SGPT 33 U/L (7.0-40); BILIRUBIN,TOTAL 0.6 MG/DL (0.3-1.2); BLOOD UREA NITROGEN 19 MG/DL (9-23); CARBON DIOXIDE LEVEL 24 MMOL/L (20-31); CHLORIDE LEVEL 98 MMOL/L (98-107); CREATININE FOR GFR 0.75 MG/DL (0.55-1.30); GLOMERULAR FILTRATION RATE > 60.0 (>39); GLUCOSE, FASTING 128 MG/DL (74-106); HEPATITIS B CORE ANTIBODY IGM NEGATIVE (NEGATIVE); HEPATITIS C VIRUS ABY INDEX 0.1 INDEX (<0.8); POTASSIUM SERUM 4.1 MMOL/L (3.5-5.1); SODIUM LEVEL 136 MMOL/L (136-145); TOTAL PROTEIN 8.1 G/DL (5.7-8.2)
[2022-08-21 16:09] LABS: AFP TUMOR L3% 8.7 % (0.0-9.9); AFP TUMOR TOTAL 4.5 ng/mL (0.0-9.2); ANA (HEP2) Negative (.); ANTI-MITOCHONDRIAL ANTIBODY <20.0 Units (0.0-20.0); HEPATITIS A IgG TOTAL Negative (Negative); HEPATITIS B CORE ANTIBODY IGG Negative (Negative)
== END ==
LOC: M PLALAB 11:02
PROVIDERS: ATTEND Physician Assistant Medical
DX: E11.9 Type 2 diabetes mellitus without complications (principal); R79.89 Other specified abnormal findings of blood chemistry

== ENCOUNTER → 2023-01-21 | Outpatient (CLI) | payer MEDICARE, OTHER ==
[2023-01-21 15:51] LABS: ALBUMIN 4.5 G/DL (3.2-5.2); ALKALINE PHOSPHATASE 84 U/L (46-116); ALT/SGPT 23 U/L (7.0-40); AST/SGOT 20 U/L (<34); BILIRUBIN,TOTAL 0.7 MG/DL (0.3-1.2); BLOOD UREA NITROGEN 21 MG/DL (9-23); CALCIUM LEVEL 10.1 MG/DL (8.3-10.6); CARBON DIOXIDE LEVEL 25 MMOL/L (20-31); CHLORIDE LEVEL 101 MMOL/L (98-107); CHOLESTEROL LEVEL 173 MG/DL (<200); CHOLESTEROL RISK RATIO 2.82 (<5); CREATININE FOR GFR 0.84 MG/DL (0.55-1.30); GLOMERULAR FILTRATION RATE > 60.0 (>39); GLUCOSE, FASTING 111 MG/DL (74-106); HDL CHOLESTEROL 61.2 MG/DL (>40); LDL CHOLESTEROL 90.4 MG/DL (<100); NON-HDL-C 111.8 MG/DL; POTASSIUM SERUM 4.1 MMOL/L (3.5-5.1); SODIUM LEVEL 137 MMOL/L (136-145); TRIGLYCERIDES LEVEL 107 MG/DL (<150)
[2023-01-21 15:52] LABS: PTH INTACT 25.2 PG/ML (18.5-88.0)
[2023-01-21 15:53] LABS: BASO # 0.1 10^3/uL (0.0-0.2); BASO % 0.7 % (0.0-1.0); EOS # 0.2 10^3/uL (0.0-0.5); EOS % 1.8 % (0.0-3.0); FREE T4 0.75 NG/DL (0.89-1.76); HEMATOCRIT 35.9 % (36.0-47.0); HEMOGLOBIN 12.3 g/dl (12.0-15.5); LYMPH # 3.4 10^3/uL (1.5-5.0); LYMPH % 40.3 % (24.0-44.0); MEAN CORPUSCULAR HEMOGLOBIN 32.1 pg (27.0-33.0); MEAN CORPUSCULAR HGB CONC 34.3 g/dl (32.0-36.5); MEAN CORPUSCULAR VOLUME 93.7 fl (80.0-96.0); MONO # 0.6 10^3/uL (0.0-0.8); MONO % 7.1 % (2.0-8.0); NEUTROPHILS # 4.2 10^3/uL (1.5-8.5); PLATELET COUNT, AUTOMATED 191 10^3/uL (150-450); RED BLOOD COUNT 3.83 10^6/uL (4.00-5.40); THYROID STIMULATING HORMONE 13.634 uIU/ML (0.55-4.78); TOTAL 25(OH) VITAMIN D 48.6 NG/ML (20.0-100.0); WHITE BLOOD COUNT 8.5 10^3/uL (4.0-10.0)
[2023-01-21 16:03] LABS: HEMOGLOBIN A1c 5.2 % (4.0-6.0)
== END ==
LOC: M PLALAB 13:55
PROVIDERS: ATTEND Physician Assistant Medical
DX: E11.9 Type 2 diabetes mellitus without complications (principal); I10 Essential (primary) hypertension; R79.89 Other specified abnormal findings of blood chemistry; E78.5 Hyperlipidemia, unspecified; E03.9 Hypothyroidism, unspecified; E55.9 Vitamin D deficiency, unspecified

== ENCOUNTER → 2023-01-21 | Outpatient (CLI) | payer MEDICARE, OTHER | LOC: M PLAIMG 12:58 | PROVIDERS: ATTEND Physician Assistant Medical | DX: Z00.00 Encounter for general adult medical examination without abnormal findings (principal); R91.8 Other nonspecific abnormal finding of lung field; R93.2 Abnormal findings on diagnostic imaging of liver and biliary tract; R93.89 Abnormal findings on diagnostic imaging of other specified body structures; E11.9 Type 2 diabetes mellitus without complications; I10 Essential (primary) hypertension; R79.89 Other specified abnormal findings of blood chemistry; E78.5 Hyperlipidemia, unspecified; E03.9 Hypothyroidism, unspecified; E55.9 Vitamin D deficiency, unspecified ==

== ENCOUNTER → 2023-01-23 | Outpatient (REF) | payer MEDICARE, OTHER | LOC: M SFHCPLAZ 10:32 | PROVIDERS: ATTEND Physician Assistant Medical | DX: E03.9 Hypothyroidism, unspecified (principal); E21.1 Secondary hyperparathyroidism, not elsewhere classified; Z53.9 Procedure and treatment not carried out, unspecified reason ==

== ENCOUNTER → 2023-07-21 | Outpatient (CLI) | payer MEDICARE, OTHER ==
[2023-07-21 15:52] LABS: BASO # 0.1 10^3/uL (0.0-0.2); BASO % 0.8 % (0.0-1.0); EOS # 0.1 10^3/uL (0.0-0.5); EOS % 1.8 % (0.0-3.0); HEMATOCRIT 34.5 % (36.0-47.0); HEMOGLOBIN 11.9 g/dl (12.0-15.5); LYMPH # 2.2 10^3/uL (1.5-5.0); LYMPH % 27.6 % (24.0-44.0); MEAN CORPUSCULAR HEMOGLOBIN 31.1 pg (27.0-33.0); MEAN CORPUSCULAR HGB CONC 34.5 g/dl (32.0-36.5); MEAN CORPUSCULAR VOLUME 90.1 fl (80.0-96.0); MONO # 0.5 10^3/uL (0.0-0.8); MONO % 5.9 % (2.0-8.0); NEUTROPHILS % 63.6 % (36.0-66.0); PLATELET COUNT, AUTOMATED 148 10^3/uL (150-450); RED BLOOD COUNT 3.83 10^6/uL (4.00-5.40); WHITE BLOOD COUNT 7.8 10^3/uL (4.0-10.0)
[2023-07-21 23:04] LABS: ALBUMIN 4.7 G/DL (3.2-5.2); ALKALINE PHOSPHATASE 77 U/L (46-116); ALT/SGPT 28 U/L (7.0-40); AST/SGOT 34 U/L (<34); BILIRUBIN,TOTAL 0.7 MG/DL (0.3-1.2); BLOOD UREA NITROGEN 20 MG/DL (9-23); CALCIUM LEVEL 9.6 MG/DL (8.3-10.6); CARBON DIOXIDE LEVEL 24 MMOL/L (20-31); CHLORIDE LEVEL 103 MMOL/L (98-107); CHOLESTEROL LEVEL 146 MG/DL (<200); CHOLESTEROL RISK RATIO 2.79 (<5); CREATININE FOR GFR 0.74 MG/DL (0.55-1.30); FREE T4 0.89 NG/DL (0.89-1.76); GLOMERULAR FILTRATION RATE > 60.0 (>39); GLUCOSE, FASTING 135 MG/DL (74-106); HDL CHOLESTEROL 52.3 MG/DL (>40); LDL CHOLESTEROL 73.9 MG/DL (<100); NON-HDL-C 93.7 MG/DL; PTH INTACT 30.7 PG/ML (18.5-88.0); SODIUM LEVEL 139 MMOL/L (136-145); THYROID STIMULATING HORMONE 3.762 uIU/ML (0.55-4.78); TOTAL PROTEIN 8.1 G/DL (5.7-8.2); TRIGLYCERIDES LEVEL 99 MG/DL (<150)
[2023-07-21 23:05] LABS: TOTAL 25(OH) VITAMIN D 46.4 NG/ML (20.0-100.0)
== END ==
LOC: M PLALAB 12:06
PROVIDERS: ATTEND Physician Assistant Medical
DX: R35.1 Nocturia (principal); I10 Essential (primary) hypertension; R79.89 Other specified abnormal findings of blood chemistry; E03.9 Hypothyroidism, unspecified; E78.5 Hyperlipidemia, unspecified; E21.1 Secondary hyperparathyroidism, not elsewhere classified

== ENCOUNTER → 2024-07-27 | Outpatient (CLI) | payer OTHER ==
[2024-07-27 11:47] LABS: BASO % 0.1 % (0.0-1.0); EOS # 0.2 10^3/uL (0.0-0.5); EOS % 2.2 % (0.0-3.0); HEMATOCRIT 35.2 % (36.0-47.0); HEMOGLOBIN 12.1 g/dl (12.0-15.5); LYMPH # 5.3 10^3/uL (1.5-5.0); LYMPH % 51.5 % (24.0-44.0); MEAN CORPUSCULAR HEMOGLOBIN 31.9 pg (27.0-33.0); MEAN CORPUSCULAR HGB CONC 34.4 g/dl (32.0-36.5); MEAN CORPUSCULAR VOLUME 92.9 fl (80.0-96.0); MONO # 0.6 10^3/uL (0.0-0.8); MONO % 6.1 % (2.0-8.0); NEUTROPHILS # 4.1 10^3/uL (1.5-8.5); NEUTROPHILS % 39.7 % (36.0-66.0); PLATELET COUNT, AUTOMATED 180 10^3/uL (150-450); RED BLOOD COUNT 3.79 10^6/uL (4.00-5.40); WHITE BLOOD COUNT 10.2 10^3/uL (4.0-10.0)
[2024-07-27 12:07] LABS: HEMOGLOBIN A1c 5.4 % (4.0-6.0)
[2024-07-27 12:12] LABS: ALBUMIN 4.1 G/DL (3.2-5.2); ALKALINE PHOSPHATASE 62 U/L (35-104); ALT/SGPT 40 U/L (7.0-40); AST/SGOT 31 U/L (<34); BILIRUBIN,TOTAL 0.7 MG/DL (0.3-1.2); BLOOD UREA NITROGEN 24 MG/DL (9-23); CALCIUM LEVEL 10.5 MG/DL (8.3-10.6); CARBON DIOXIDE LEVEL 28 MMOL/L (20-31); CHLORIDE LEVEL 105 MMOL/L (98-107); CHOLESTEROL LEVEL 142 MG/DL (<200); CHOLESTEROL RISK RATIO 2.39 (<5); CREATININE FOR GFR 0.82 MG/DL (0.55-1.30); GLOMERULAR FILTRATION RATE > 60.0 (>39); GLUCOSE, FASTING 102 MG/DL (74-106); HDL CHOLESTEROL 59.4 MG/DL (>40); LDL CHOLESTEROL 59.6 MG/DL (<100); NON-HDL-C 82.6 MG/DL; POTASSIUM SERUM 3.9 MMOL/L (3.5-5.1); SODIUM LEVEL 139 MMOL/L (136-145); TOTAL PROTEIN 7.3 G/DL (5.7-8.2); TRIGLYCERIDES LEVEL 115 MG/DL (<150)
[2024-07-27 12:13] LABS: PTH INTACT 20.8 PG/ML (18.5-88.0)
[2024-07-27 12:14] LABS: FREE T4 1.26 NG/DL (0.89-1.76)
[2024-07-27 12:15] LABS: TOTAL 25(OH) VITAMIN D 93.6 NG/ML (20.0-100.0)
== END ==
LOC: M PLALAB 09:09
PROVIDERS: ATTEND Physician Assistant Medical
DX: E11.9 Type 2 diabetes mellitus without complications (principal); I10 Essential (primary) hypertension; E21.1 Secondary hyperparathyroidism, not elsewhere classified; E78.5 Hyperlipidemia, unspecified; E55.9 Vitamin D deficiency, unspecified

== ENCOUNTER → 2024-07-27 | Outpatient (CLI) | payer OTHER | LOC: M WHC 07:30 | PROVIDERS: ATTEND Physician Assistant Medical | DX: Z12.31 Encounter for screening mammogram for malignant neoplasm of breast (principal); M85.80 Other specified disorders of bone density and structure, unspecified site; E11.9 Type 2 diabetes mellitus without complications; I10 Essential (primary) hypertension; E21.1 Secondary hyperparathyroidism, not elsewhere classified; R92.333 Mammographic heterogeneous density, bilateral breasts; E55.9 Vitamin D deficiency, unspecified; E78.5 Hyperlipidemia, unspecified; Z78.0 Asymptomatic menopausal state ==

== ENCOUNTER → 2025-01-06 | Outpatient (CLI) | payer OTHER ==
[2025-01-06 17:49] LABS: FREE T4 1.08 NG/DL (0.89-1.76)
[2025-01-06 17:50] LABS: ALBUMIN 4.5 G/DL (3.2-5.2); BILIRUBIN,TOTAL 0.6 MG/DL (0.3-1.2); CALCIUM LEVEL 10.3 MG/DL (8.3-10.6); CHOLESTEROL RISK RATIO 3.5 (<5); CREATININE FOR GFR 0.93 MG/DL (0.55-1.30); GLOMERULAR FILTRATION RATE 64.5 (>39); HDL CHOLESTEROL 47.3 MG/DL (>40); LDL CHOLESTEROL 77.5 MG/DL (<100); NON-HDL-C 118.7 MG/DL; POTASSIUM SERUM 4.3 MMOL/L (3.5-5.1); THYROID STIMULATING HORMONE 3.13 uIU/ML (0.55-4.78); TOTAL PROTEIN 8.2 G/DL (5.7-8.2)
[2025-01-06 17:51] LABS: TOTAL 25(OH) VITAMIN D 103.7 NG/ML (20.0-100.0)
[2025-01-06 18:05] LABS: BASO # 0.1 10^3/uL (0.0-0.2); BASO % 0.6 % (0.0-1.0); EOS # 0.1 10^3/uL (0.0-0.5); EOS % 1.5 % (0.0-3.0); HEMATOCRIT 36.7 % (36.0-47.0); HEMOGLOBIN 12.6 g/dl (12.0-15.5); LYMPH # 2.7 10^3/uL (1.5-5.0); LYMPH % 30.6 % (24.0-44.0); MEAN CORPUSCULAR HEMOGLOBIN 31.3 pg (27.0-33.0); MEAN CORPUSCULAR HGB CONC 34.3 g/dl (32.0-36.5); MEAN CORPUSCULAR VOLUME 91.3 fl (80.0-96.0); MONO # 0.5 10^3/uL (0.0-0.8); NEUTROPHILS # 5.4 10^3/uL (1.5-8.5); PLATELET COUNT, AUTOMATED 180 10^3/uL (150-450); RED BLOOD COUNT 4.02 10^6/uL (4.00-5.40); WHITE BLOOD COUNT 8.9 10^3/uL (4.0-10.0)
[2025-01-06 18:12] LABS: HEMOGLOBIN A1c 5.4 % (4.0-6.0)
[2025-01-06 20:05] LABS: CREATININE, URINE 66.3 MG/DL; MAU/CREAT RATIO 27.1 MCG/MG (0.0-30.0)
== END ==
LOC: M PLALAB 15:22
PROVIDERS: ATTEND Physician Assistant Medical
DX: E11.9 Type 2 diabetes mellitus without complications (principal); I10 Essential (primary) hypertension; E03.9 Hypothyroidism, unspecified; E78.5 Hyperlipidemia, unspecified; E55.9 Vitamin D deficiency, unspecified

== ENCOUNTER → 2025-01-12 | Outpatient (CLI) | payer MEDICARE, OTHER ==
[2025-01-12 12:58] LABS: PARTIAL THROMBOPLASTIN TIME 26.6 SECONDS (24.8-34.2); PROTHROMBIN TIME 13.5 SECONDS (12.5-14.5)
[2025-01-12 15:39] LABS: HEPATITIS B SURFACE ANTIGEN NEGATIVE (NEGATIVE)
[2025-01-12 15:44] LABS: HEPATITIS B SURFACE ANTIBODY POSITIVE (POSITIVE)
[2025-01-12 15:59] LABS: HEPATITIS C VIRUS ABY INDEX 0.03 INDEX (<0.8)
[2025-01-13 13:02] LABS: HEPATITIS A IgG TOTAL REACTIVE (NON-REACTIVE)
[2025-01-18 21:42] LABS: AFP TUMOR TOTAL 3.6 ng/mL (1.6-4.5)
== END ==
LOC: M PLAIMG 10:58
PROVIDERS: ATTEND Physician Assistant Medical
DX: R79.89 Other specified abnormal findings of blood chemistry (principal); M54.2 Cervicalgia; M25.511 Pain in right shoulder; M75.31 Calcific tendinitis of right shoulder; M47.892 Other spondylosis, cervical region; Z11.59 Encounter for screening for other viral diseases

== ENCOUNTER → 2025-09-01 | Outpatient (CLI) | payer MEDICARE, OTHER | LOC: M WHC 11:15 | PROVIDERS: ATTEND Physician Assistant Medical | DX: Z12.39 Encounter for other screening for malignant neoplasm of breast (principal); Z53.9 Procedure and treatment not carried out, unspecified reason ==